=== PATIENT | female | born 1980 | race Two or more races ===

== ENCOUNTER 2024-12-26 21:18 | Emergency (ER) | payer MEDICAID, SELFPAY ==
[2024-12-26 21:19] VITALS: BMI 31.8
[2024-12-26 21:54] VITALS: BP 131/57; PULSE 75; RESP 18; TEMP 36.9; O2SAT 99
--- NOTE | 2024-12-26 22:13 | XR_ITS ---
Examination: CT brain head without contrast. 2-D sagittal coronal reconstructions Date and time of exam:December 26, 2024 10:40 PM INDICATIONS: Headaches today CTDI: vol (mGy):48.8 DLP: (mGycm):948 Technique: Multiple CT axial sections of the brain have been obtained, 5 mm slice thickness. Contrast has not been administered. 2-D sagittal, coronal reconstructions have been obtained Low dose protocols were performed. One or more of the following dose reduction techniques were used; automated exposure control, adjustment of the mA and/or KV according to patient size, use of iterative reconstruction technique. Findings: No significant ventricular enlargement. Intra-axial or extra-axial hemorrhage density is not seen. No mass effect or midline shift Basal cisterns are not remarkable. Fourth ventricle is midline. Cranial vault intact. 10 mm retention cyst right maxillary antrum Impression: Negative for acute hemorrhage, mass effect or midline shift
--- NOTE | 2024-12-26 23:31 | PD.EDHA ---
ED Headache RME/HPI General Chief Complaint: Headache Stated Complaint: HEADACHE X1 WEEK Time Seen by Provider: 12/26/24 21:23 Arrival date/time: 12/26/24 21:18 This is a case of a 44-year-old female who was brought by the daughter due to headache mostly on the left frontal parietal area daughter states that the patient have history of migraine headache but not taking any medication patient symptoms started 1 week prior to arrival in the emergency room with nausea no vomiting no blurring of vision no history of injury or trauma patient denies any numbness weakness or tingling sensation denies any dizziness Limitations: no limitations Related Data Home Medications ?Medication ?Instructions ?Recorded ?Confirmed vits no.124-ferrous fum 1 tab PO QDAY 04/04/19 04/12/19 27 mg iron-folic acid 800 mcg tablet ( Vitamin) Previous Rx's ?Medication ?Instructions ?Recorded [id number]-rrwztwrzonwgy-eyheafjs 250 1 tab PO Q6H PRN headache #20 tabs 12/26/24 mg-250 mg-65 mg tablet (Excedrin Migraine) ondansetron 4 mg disintegrating 4 mg PO Q8H PRN nausea and 12/26/24 tablet vomiting #20 tabs Allergies Allergy/AdvReac Type Severity Reaction Status Date / Time No Known Allergies Allergy Unverified 04/14/19 11:30 Review of Systems Review of Systems Systems Reviewed: All systems reviewed, normal except as documented Constitutional Constitutional: Reports system reviewed and no additional complaints, except as documented, Denies frequent falls and Reports headache(s) Eyes Eyes: Reports system reviewed and no additional complaints, except as documented, Reports as per HPI and Denies loss of vision ENT Ears, Nose, Mouth, and Throat: Reports system reviewed and no additional complaints, except as documented, Reports as per HPI, Denies abnormal hearing, Denies disequilibrium, Denies dizziness and Reports headache(s) Cardiovascular Cardiovascular: Reports system reviewed and no additional complaints, except as documented Respiratory Respiratory: Reports system reviewed and no additional complaints, except as documented Gastrointestinal Gastrointestinal: Reports system reviewed and no additional complaints, except as documented Musculoskeletal Musculoskeletal: Reports system reviewed and no additional complaints, except as documented, Denies abnormal gait and Denies numbness Neurologic Neurologic: Reports system reviewed and no additional complaints, except as documented, Reports as per HPI, Denies abnormal gait, Denies abnormal hearing, Denies abnormal movements, Denies abnormal speech, Denies behavioral changes, Denies burning sensations, Denies confusion, Denies convulsions, Denies disequilibrium, Denies dizziness, Denies localized weakness, Denies frequent falls, Reports headache(s), Denies lack of coordination, Denies loss of vision, Denies memory loss and Denies numbness Psychiatric Psychiatric: Denies behavioral changes, Denies confusion and Denies memory loss Past Medical History Past Medical History NEUROLOGIC: Negative Neurological Disorders or Seizures CARDIAC: Negative Cardiac Disorders or Congestive Heart Failure RESPIRATORY: Negative Chronic Obstructive Pulmonary Disease (COPD) GASTROINTESTINAL: Negative Gastrointestinal Disorders, Hepatitis or Colorectal Cancer GENITOURINARY: Negative Genitourinary Disorders, Renal Disease or Prostate Cancer REPRODUCTIVE: Negative Breast Cancer or Testicular Cancer MUSCULOSKELETAL: Negative Musculoskeletal Disorders or Bone Cancer ENDOCRINE: Negative Endocrine Disorders, Diabetes Mellitus Type 1 or Diabetes Mellitus Type 2 HEMATOLOGIC: Negative Blood Disorders OTHER HISTORY: Positive Chicken Pox; Negative Autoimmune Disease, Developmental Delay, Blood Transfusions, Blood Transfusion Reaction, Anesthesia Reactions, MRSA, VRSA, Vancomycin-Resistant Enterococci, Human Immunodeficiency Virus (HIV), Measles, Mumps, Rubella ([place] Measles), Pertussis, Clostridium Difficile, Cancer, Breast Cancer, Cervical Cancer, Colorectal Cancer, Lung Cancer, Ovarian Cancer, Prostate Cancer or Testicular Cancer Family History FAMILY HISTORY: Positive Family Cardiac Disorders (MOTHER AND FATHER HIGH BLOOD PRESSURE); Negative Family Psychiatric Problems, Family Respiratory Disorders, Family Gastrointestinal Problems, Family Cancer, Family Surgery or Family Anesthesia Reaction Surgical History SURGICAL: Negative Section Social History SMOKING STATUS: Never smoker ED Exam General Limitations: Present no limitations General appearance: Present alert and in no apparent distress Head Head exam: Present atraumatic, normocephalic and normal inspection Eye Eye exam: Present normal appearance, PERRL, EOMI and other (no pappiledema) ENT ENT exam: Present normal exam, normal oropharynx, mucous membranes moist, mucous membranes dry, TM's normal bilaterally and normal external ear exam Neck Neck exam: Present normal inspection, full ROM and trachea midline; Absent meningismus Chest Chest inspection: Present normal inspection and symmetric chest wall rise Respiratory Respiratory exam: Present normal lung sounds bilaterally; Absent respiratory distress Cardiovascular Cardiovascular exam: Present regular rate, normal rhythm and normal heart sounds Abdominal Exam Abdominal exam: Present soft and normal bowel sounds Extremities Exam Extremities exam: Present normal inspection, full ROM and normal capillary refill; Absent tenderness Back Exam Back exam: Present normal inspection and full ROM Neurological Exam Neurological exam: Present alert, oriented X3, CN II-XII intact, normal gait, motor sensory deficit and reflexes normal Expanded Neurological Exam Cranial nerves: Normal: EOM function (II, III, IV, ), facial sensation (V), facial palsy (VII), gag reflex (IX), spinal accessory function (XI) and tongue deviation (XII) Cerebellar function: Normal: finger to nose and heel to fierro Cerebellar function: Present normal gait Motor strength - LUE: 5/5 Motor strength - RUE: 5/5 Motor strength - LLE: 5/5 Motor strength - RLE: 5/5 Upper motor neuron exam: Normal: mehrdad neglect, pronator drift, Babinski sign and sensory extinction DTR: 2+: biceps (L), biceps (R), brachioradialis (L), brachioradialis (R), triceps (L), triceps (R), patellar (L), patellar (R), Achilles tendon (L) and Achilles tendon (R) Psychiatric Psychiatric exam: Present normal affect and normal mood Skin Skin exam: Present warm, dry, intact and normal color Course Quality Measures none Orders Category Date Time Status CT head/brain wo con Stat Exams 12/26/24 22:13 Completed HYDROcodone*/APAP 5/325 [[place] 5/325] Med 12/26/24 23:25 Discontinued 1 tab PO X1 ONE Ketorolac Inj [Toradol Inj] Med 12/26/24 23:25 Discontinued 60 mg IM X1 ONE Ondansetron Odt [Zofran Odt] Med 12/26/24 23:25 Discontinued 4 mg PO X1 ONE Vital Signs Vital signs: Vital Signs Temperature 98.5 F 12/26/24 21:54 Pulse Rate 75 12/26/24 21:54 Respiratory Rate 18 12/26/24 21:54 Blood Pressure 131/57 H 12/26/24 21:54 Pulse Oximetry (%) 99 12/26/24 21:54 Oxygen Delivery Method Room Air 12/26/24 21:54 Oxygen saturation 99% in room air WNL Headache MDM Narrative MDM Narrative:: This is a case of a 44-year-old female who was brought by the daughter due to headache mostly on the left frontal parietal area daughter states that the patient have history of migraine headache but not taking any medication patient symptoms started 1 week prior to arrival in the emergency room with nausea no vomiting no blurring of vision no history of injury or trauma patient denies any numbness weakness or tingling sensation denies any dizziness physical examination patient is awake alert oriented not in distress nontoxic looking patient vital signs stable BP stable not tachycardic not tachypneic or febrile not toxic looking not in distress with good skin turgor no signs and symptoms of dehydration no signs and symptoms of meningitis no signs and symptoms of sepsis consideration tension headache migraine headache sinus headache I do not think patient is having CVA nor TIA or brain mass patient neurological exam is normal no focal deficit steady gait negative Babinski negative Romberg motor or sensory reflex were intact CT scan showed normal no intracranial bleeding no brain mass after giving Toradol [place] and Zofran patient condition markedly improved patient pain improved patient was advised to follow-up with PCP to be referred to neurologist for further evaluation and treatment of headache and for further evaluation and treatment of migraine headache for any recurrence worsening symptoms or any emergent concerns she will return in the emergency room immediately or call 911 she will be prescribed with Excedrin for headache and Zofran for vomiting patient agreed with the treatment plan and discharge patient understood the discharge instruction patient will be discharged with stable condition and steady gait Patient data External records reviewed:: [facility] previous records Clinical information provided by:: patient and family Social determinants that could affect healthcare access:: none Patient has the following chronic illnesses:: No chronic illness How is presenting disease/condition affected by chronic disease/condition?: no chronic disease Evaluation data The following diagnostics were reviewed and interpreted by me:: radiology exam(s) Lab and/or radiology exams considered but not ordered:: Reviewed Interpretation Summary: Normal Medications / Prescriptions Medications or Prescriptions considered but not ordered:: Given Medication administrations:: Medication Administration History Discontinued Medications Hydrocodone Bitart/Acetaminophen (Hydrocodone/Apap 5/325 Tablet) 1 tab PO X1 ONE Stop: 12/26/24 23:26 Ketorolac Tromethamine (Ketorolac Inj 60 Mg/2 Ml Vial) 60 mg IM X1 ONE Stop: 12/26/24 23:26 Ondansetron HCl (Ondansetron Odt 4 Mg Tabrap) 4 mg PO X1 ONE; Protocol Stop: 12/26/24 23:26 Given Consultations Consultation(s) initiated? (list below): No Diagnosis Differential diagnosis headache: migraine, tension headache and headache Most likely diagnosis given after review of the tests above:: Migraine headache Admission Indicated Admission indicated?: not indicated Admission Request Was there a request for admission?: No Disposition Plan Disposition Plan: Discharge Discharge Attestation Discharge Attestation: The patient and all family members were given an opportunity to ask questions and understood the discharge instructions. Discharge instructions specifically effects, indications for sooner follow up or return to the emergency department, and the expected course of current diagnosis. Patient condition: Stable Discharge Plan Plan Patient Disposition: HOME (Self Care) Discharge Disposition comment: Stable Prescriptions/Referrals Prescriptions/Med Rec: New Excedrin Migraine 250-250-65 mg tablet 1 tab PO Q6H PRN (Reason: headache) Qty: 20 0RF ondansetron 4 mg tablet,disintegrating 4 mg PO Q8H PRN (Reason: nausea and vomiting) Qty: 20 0RF No Action Vitamin 27 mg iron- 800 mcg Tablet 1 tab PO QDAY Referrals: No Primary/Family,Physician [Primary Care Provider] - In 1 week Problem List Clinical Impression: Headache Patient/Caregiver Discharge Instructions Other Activity Instructions:: Follow-up with your primary care physician in 2 days for reevaluation and to be referred to neurologist for your headache and migraine headache for any recurrence worsening symptoms or any emergent concern call 911 or go to the nearest emergency room increase water intake Education Materials: Self-Care for Headaches Print Language: [place] Stand Alone Forms: Vernell Award Info., Patient Portal Info Letter PA/THORACIC MEDICINE PHYSICIAN Supervising Physician PA/THORACIC MEDICINE PHYSICIAN Supervising Physician: Mario
[2024-12-27] MEDS: KETOROLAC INJ 60 MG/2 ML VIAL IM (00:10)
[2024-12-27] MEDS: ONDANSETRON ODT 4 MG TABRAP PO (00:10)
[2024-12-27] MEDS: HYDROcodone/APAP 5/325 TABLET 1 TAB PO (00:10)
== END 2024-12-26 23:40 | disposition home or self-care (01) ==
PROVIDERS: Emergency Provider Emergency Medicine
DX: R51.9 Headache, unspecified (principal)
CPT/HCPCS: 70450; 96372; 99284; J1885; Q0162; A9270

== ENCOUNTER 2025-01-23 16:10 | Emergency (ER) | payer MEDICAID, SELFPAY ==
[2025-01-23 16:34] VITALS: BP 143/76; PULSE 85; RESP 18; TEMP 36.8; O2SAT 98; BMI 29.5
--- NOTE | 2025-01-23 16:47 | PD.EDRME ---
Rapid Medical Screening Exam RME Arrival date/time: 01/23/25 16:10 44-year-old female with no known medical history was sent over by her primary care provider for hemoglobin of 6. Patient states that she is weak fatigued and is having a heavy menses. I have greeted and performed a focused initial assessment of this patient. A comprehensive ED assessment and evaluation of the patient, analysis of all test results, and completion of the medical decision making process will be conducted by additional ED providers. Chief Complaint: Recheck/Abnormal Lab/Rx Vital signs: Vital Signs Temperature 98.2 F 01/23/25 16:34 Pulse Rate 85 01/23/25 16:34 Respiratory Rate 18 01/23/25 16:34 Blood Pressure 143/76 H 01/23/25 16:34 Pulse Oximetry (%) 98 01/23/25 16:34 Oxygen Delivery Method Room Air 01/23/25 16:34 Vital signs reviewed by provider: Yes
[2025-01-23 17:10] LABS: Basophils # (Auto) 0.1 Thou/mm3 (0.0-0.2); Basophils % (Auto) 1 % (0-2.5); Eosinophils # (Auto) 0.2 Thou/mm3 (0.0-0.5); Eosinophils % (Auto) 4 % (0-10); Hematocrit 21.8 % (36.0-46.0); Immature Granulocytes % (Auto) 0 % (0-0); Immature Granulocytes Auto 0.01 Thou/mm3 (0.00-0.00); Lymphocytes # (Auto) 1.9 Thou/mm3 (1.0-4.8); Lymphocytes % (Auto) 37 % (10-50); Mean Corpuscular HGB Conc 29.8 g/dl (31.0-37.0); Mean Corpuscular Hemoglobin 19.2 pg (25.0-35.0); Mean Corpuscular Volume 65 fL (80-100); Monocytes # (Auto) 0.4 Thou/mm3 (0.0-0.8); Monocytes % (Auto) 8 % (0-12); Neutrophils # (Auto) 2.6 Thou/mm3 (1.8-7.7); Neutrophils % (Auto) 50 % (37-80); Nucleated Red Blood Cell % 0 /100 WBC (0); Platelet Count 356 Thou/mm3 (140-440); RDW Standard Deviation 48.2 fL (36.4-46.3); Red Blood Count 3.38 Miln/mm3 (4.00-5.20); White Blood Count 5.2 Thou/mm3 (3.6-11.0)
[2025-01-23 17:22] LABS: Hemoglobin 6.5 g/dL (12.0-16.0)
[2025-01-23 17:26] LABS: Ferritin 7 ng/mL (7.3-270.7)
[2025-01-23 17:34] LABS: Alanine Aminotransferase 8 U/L (10-49); Albumin, Serum 3.9 gm/dL (3.5-5.0); Albumin/Globulin Ratio 1.4 (1.2-2.2); Alkaline Phosphatase 63 U/L (46-116); Anion Gap 10 (7-16); BUN/Creatinine Ratio 22 Ratio (12-20); Bilirubin,Total 0.4 mg/dL (0.3-1.2); Blood Urea Nitrogen 13 mg/dL (9-23); Calcium 8.2 mg/dL (8.3-10.6); Calcium (Corrected) 8.3 mg/dL (8.5-10.1); Carbon Dioxide 23.5 mMol/L (20.0-31.0); Chloride 112 mMol/L (98-107); Creatinine (Component) 0.6 mg/dL (0.6-1.3); Estimated Creatinine Clearance 118.4 mL/min (>60); Globulin 2.8 gm/dL (2.3-3.5); Glucose 99 mg/dL (74-106); Osmolality,Calculated 288 (275-295); Sodium 145 mMol/L (136-145); Total Protein 6.7 gm/dL (5.7-8.2); eGFR > 60 See Note
[2025-01-23 18:18] LABS: Path Review Blood Smear Sent to Pathologist
[2025-01-23 18:29] LABS: Partial Thromboplastin Time 23.4 Seconds (22.0-36.0); Prothrombin Time 10.9 Seconds (9.0-12.2)
[2025-01-23 19:46] VITALS: BP 115/67; PULSE 85; RESP 20; TEMP 36.9; O2SAT 100
[2025-01-23 21:53] VITALS: BP 120/69; PULSE 85; RESP 18; TEMP 37.1; O2SAT 97
--- NOTE | 2025-01-23 23:24 | EKG_ITS ---
[facility] Test Date: 2025-01-23 Pat Name: ADRIÁN Gonzalezpartment: Room: - Gender: Female [employer]: : 1980 Requested By: Cass Mejia Order Number: [id number] Reading MD: Cass Mejia Measurements Intervals [place] Rate: 63 P: 36 NM: 148 QRS: 12 QRSD: 101 T: 48 QT: 441 QTc: 454 Interpretive Statements SINUS RHYTHM No previous ECG available for comparison /store/S0/[id number]/ecg/[id number].pdf
--- NOTE | 2025-01-23 23:27 | PD.EDRECHK ---
ED Recheck Abnl Lab Rx-RME/HPI General Chief Complaint: Recheck/Abnormal Lab/Rx Stated Complaint: SENT FOR BLOOD TRANSFUSION Time Seen by Provider: 01/23/25 18:26 Arrival date/time: 01/23/25 16:10 44-year-old female with no past medical history presents to the ED with a complaint of fatigue, weakness and heavy menstrual bleeding. She has been having heavy menses for a while. She was seen by her primary care physician for complaint of a headache. The PCP ordered labs and discovered a very low hemoglobin. She was sent here for further workup and evaluation as well as blood transfusion. She denies any nausea or vomiting, diarrhea or abdominal pain. Limitations: language barrier RME / HPI RME / HPI narrative: 01/23/25 16:10 44-year-old female with no known medical history was sent over by her primary care provider for hemoglobin of 6. Patient states that she is weak fatigued and is having a heavy menses. I have greeted and performed a focused initial assessment of this patient. A comprehensive ED assessment and evaluation of the patient, analysis of all test results, and completion of the medical decision making process will be conducted by additional ED providers. Related Data Home Medications ?Medication ?Instructions ?Recorded ?Confirmed vits no.124-ferrous fum 1 tab PO QDAY 04/04/19 04/12/19 27 mg iron-folic acid 800 mcg tablet ( Vitamin) Previous Rx's ?Medication ?Instructions ?Recorded lctyxqt-sntswagdksqjl-kxxopxxk 250 1 tab PO Q6H PRN headache #20 tabs 12/26/24 mg-250 mg-65 mg tablet (Excedrin Migraine) ondansetron 4 mg disintegrating 4 mg PO Q8H PRN nausea and 12/26/24 tablet vomiting #20 tabs ferrous sulfate 325 mg (65 mg 325 mg PO BID #60 tabs 01/24/25 iron) tablet Allergies Allergy/AdvReac Type Severity Reaction Status Date / Time No Known Allergies Allergy Unverified 01/23/25 16:12 Review of Systems Review of Systems Systems Reviewed: All systems reviewed, normal except as documented Past Medical History Past Medical History NEUROLOGIC: Negative Neurological Disorders or Seizures CARDIAC: Negative Cardiac Disorders or Congestive Heart Failure RESPIRATORY: Negative Chronic Obstructive Pulmonary Disease (COPD) GASTROINTESTINAL: Negative Gastrointestinal Disorders, Hepatitis or Colorectal Cancer GENITOURINARY: Negative Genitourinary Disorders, Renal Disease or Prostate Cancer REPRODUCTIVE: Negative Breast Cancer or Testicular Cancer MUSCULOSKELETAL: Negative Musculoskeletal Disorders or Bone Cancer ENDOCRINE: Negative Endocrine Disorders, Diabetes Mellitus Type 1 or Diabetes Mellitus Type 2 HEMATOLOGIC: Negative Blood Disorders OTHER HISTORY: Positive Chicken Pox; Negative Autoimmune Disease, Developmental Delay, Blood Transfusions, Blood Transfusion Reaction, Anesthesia Reactions, MRSA, VRSA, Vancomycin-Resistant Enterococci, Human Immunodeficiency Virus (HIV), Measles, Mumps, Rubella (Mauritanian Measles), Pertussis, Clostridium Difficile, Cancer, Breast Cancer, Cervical Cancer, Colorectal Cancer, Lung Cancer, Ovarian Cancer, Prostate Cancer or Testicular Cancer Family History FAMILY HISTORY: Positive Family Cardiac Disorders; Negative Family Psychiatric Problems, Family Respiratory Disorders, Family Gastrointestinal Problems, Family Cancer, Family Surgery or Family Anesthesia Reaction Surgical History SURGICAL: Negative Section Social History SMOKING STATUS: Never smoker ED Exam Narrative Physical exam: Alert and oriented 44-year-old female, appears fatigued. Lungs are clear, regular rate and rhythm without murmurs, abdomen is soft and nontender. Pale conjunctiva noted. Moves all extremities well. General Limitations: Present language barrier General appearance: Present alert and in no apparent distress Course Course Course Narrative: 44-year-old female with no past medical history presents to the ED with a complaint of fatigue, weakness and heavy menstrual bleeding. She has been having heavy menses for a while. She was seen by her primary care physician for complaint of a headache. The PCP ordered labs and discovered a very low hemoglobin. She was sent here for further workup and evaluation as well as blood transfusion. She denies any nausea or vomiting, diarrhea or abdominal pain. Alert and oriented 44-year-old female, appears fatigued. Lungs are clear, regular rate and rhythm without murmurs, abdomen is soft and nontender. Pale conjunctiva noted. Moves all extremities well. Vital signs blood pressure 143/76, pulse 85, respirations 18 nonlabored, temp 98.2, O2 sat 98% on room air. Labs reveal a normal white count with significantly low H&H of 6.5/21.8 with normal platelets. Coags are normal. Chemistry panel reveals a minimally elevated chloride of 112, normal renal function, low ferritin of 7 with normal LFTs. Blood bank tests reveal low positive blood with negative antibody screen. 2 units of PRBCs ordered as are currently transfusing. Care of patient transferred to Dr. Banks at 0235 pending completion of transfusion and repeat CBC. 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 STAT Care 01/23/25 23:24 Active EKG (ED ONLY) *Do not use* NOW Care 01/23/25 23:24 Completed Insert IV STAT Care 01/23/25 23:24 Active NPO NOW Care 01/23/25 23:24 Active Transfuse,blood/blood products ONCE Care 01/23/25 23:24 Active EKG (ED Only) Stat Exams 01/23/25 23:24 Draft CBC Auto Diff Post-Transfusion Routine Lab 01/23/25 23:24 Ordered CBC Stat Lab 01/23/25 16:58 Completed CMP [Comprehensive Metabolic Panel] Stat Lab 01/23/25 16:58 Completed Ferritin Stat Lab 01/23/25 16:58 Completed PT [Prothrombin Time with INR] Stat Lab 01/23/25 16:58 Completed PTT [Partial Thromboplastin Time] Stat Lab 01/23/25 16:58 Completed Path Review Blood Smear Stat Lab 01/23/25 16:58 Completed Type and Screen Stat Lab 01/23/25 16:58 Results prbc [Red Blood Cells] Stat Lab 01/23/25 16:58 Results Acetaminophen Tab [Tylenol Tab] Med 01/23/25 23:24 Discontinued 650 mg PO X1 ONE DiphenhydrAMINE [Benadryl] Med 01/23/25 23:24 Discontinued 25 mg PO X1 ONE Furosemide [Lasix Inj] Med 01/23/25 23:24 Discontinued 40 mg IVP X1 ONE Vital Signs Vital signs: Vital Signs Temperature 98.2 F 01/23/25 16:34 Pulse Rate 85 01/23/25 16:34 Respiratory Rate 18 01/23/25 16:34 Blood Pressure 143/76 H 01/23/25 16:34 Pulse Oximetry (%) 98 01/23/25 16:34 Oxygen Delivery Method Room Air 01/23/25 16:34 Recheck / Abnormal Lab / Rx MDM Narrative MDM Narrative:: 44-year-old female with no past medical history presents to the ED with a complaint of fatigue, weakness and heavy menstrual bleeding. She has been having heavy menses for a while. She was seen by her primary care physician for complaint of a headache. The PCP ordered labs and discovered a very low hemoglobin. She was sent here for further workup and evaluation as well as blood transfusion. She denies any nausea or vomiting, diarrhea or abdominal pain. Alert and oriented 44-year-old female, appears fatigued. Lungs are clear, regular rate and rhythm without murmurs, abdomen is soft and nontender. Pale conjunctiva noted. Moves all extremities well. Vital signs blood pressure 143/76, pulse 85, respirations 18 nonlabored, temp 98.2, O2 sat 98% on room air. Labs reveal a normal white count with significantly low H&H of 6.5/21.8 with normal platelets. Coags are normal. Chemistry panel reveals a minimally elevated chloride of 112, normal renal function, low ferritin of 7 with normal LFTs. Blood bank tests reveal O positive blood with negative antibody screen. 2 units of PRBCs ordered as are currently transfusing. Care of patient transferred to Dr. Banks at 0235 pending completion of transfusion and repeat CBC. Patient data External records reviewed:: None Clinical information provided by:: patient Social determinants that could affect healthcare access:: none Patient has the following chronic illnesses:: None How is presenting disease/condition affected by chronic disease/condition?: no chronic disease Evaluation data The following diagnostics were reviewed and interpreted by me:: lab results Lab and/or radiology exams considered but not ordered:: N/A Interpretation Summary: Labs reveal a normal white count with significantly low H&H of 6.5/21.8 with normal platelets. Coags are normal. Chemistry panel reveals a minimally elevated chloride of 112, normal renal function, low ferritin of 7 with normal LFTs. Blood bank tests reveal O positive blood with negative antibody screen. Medications / Prescriptions Medications or Prescriptions considered but not ordered:: N/A Medication administrations:: Medication Administration History Discontinued Medications Acetaminophen (Acetaminophen 325 Mg Tablet) 650 mg PO X1 ONE Stop: 01/23/25 23:25 Diphenhydramine HCl (Diphenhydramine 25 Mg Capsule) 25 mg PO X1 ONE Stop: 01/23/25 23:25 Furosemide (Furosemide Inj 10 Mg/Ml Vial 2 Ml) 40 mg IVP X1 ONE Stop: 01/23/25 23:25 Last Admin: 01/24/25 02:09 Dose: Not Given Documented By: AM Non-Admin Reason: Patient Refused Tylenol 650 mg p.o., diphenhydramine 25 mg p.o. Consultations Consultation(s) initiated? (list below): No Diagnosis Recheck Differential Diagnosis: other (Acute blood loss anemia, iron deficiency anemia) Most likely diagnosis given after review of the tests above:: Acute blood loss anemia secondary to menorrhagia Admission Indicated Admission indicated?: not indicated Explain why admission is indicated or not indicated:: Patient is stable for discharge Admission Request Was there a request for admission?: No Disposition Plan Disposition Plan: Discharge Discharge Attestation Discharge Attestation: The patient and all family members were given an opportunity to ask questions and understood the discharge instructions. Discharge instructions specifically effects, indications for sooner follow up or return to the emergency department, and the expected course of current diagnosis. Patient condition: Stable Discharge Plan Plan Patient Disposition: HOME (Self Care) Discharge Disposition comment: Stable and improved Prescriptions/Referrals Prescriptions/Med Rec: New ferrous sulfate 325 mg (65 mg iron) tablet 325 mg PO BID Qty: 60 0RF No Action Vitamin 27 mg iron- 800 mcg Tablet 1 tab PO QDAY Excedrin Migraine 250-250-65 mg tablet 1 tab PO Q6H PRN (Reason: headache) Qty: 20 0RF ondansetron 4 mg tablet,disintegrating 4 mg PO Q8H PRN (Reason: nausea and vomiting) Qty: 20 0RF Referrals: No Primary/Family,Physician [Primary Care Provider] - In 1 week Problem List Clinical Impression: Anemia, Menorrhagia Patient/Caregiver Discharge Instructions Education Materials: ED Anemia Type Not Specified, ED Dysfunctional Uterine Bleeding Additional Instructions: Follow-up with your primary care physician in 24 to 48 hours. Return to the ED for any new or worsening symptoms. Print Language: Telugu Stand Alone Forms: [employer] Info., Patient Portal Info Letter SOCORRO/FATOUMATA Supervising Physician SOCORRO/FATOUMATA Supervising Physician: Dr Banks
[2025-01-24] VITALS (12 sets, daily range): BP systolic 114–137; BP diastolic 60–86; PULSE 59–70; RESP 14–20; TEMP 36.6–36.9; O2SAT 97–100
[2025-01-24] MEDS: ACETAMINOPHEN 325 MG TABLET 650 MG PO (04:20)
--- NOTE | 2025-01-24 04:59 | EDNOTE_ITS ---
Emergency Room Addendum Addendum Narrative: I took over the care from previous shift provider (Cass Cooley NP) at _3 AM_ on _01/24/2025_.? See previous notes for complete H & P and ED course.?? I reviewed all diagnostic test results: Remarkable for Hgb 6.5. Treatment here included?blood transfusion. Recommended more outpatient care. Based on my best medical judgment, made decision no further evaluation or treatment indicated at this time.? Patient understands and agrees to the discharge instructions customized and printed, see below. Discharge Instructions from Dr. Banks printed for you: 1. You are given blood transfusion for severely low red blood cell count. 2. Your body needs iron to make red blood cells which take 3 months. Take iron pills as prescribed. Increase food rich in iron, including red meat and egg yolks and seaweed. 3. See a private doctor on 01/26/2025 for recheck and further care. Ask to review all test results and official radiology reports, to make sure you receive all necessary follow-ups and monitoring. Ask for a referral to see self propelled hot mix roller operator who can help you find the cause and treatment of your blood loss. 4. Seek immediate medical care with worsening or with any concerns. Jose Juan Banks MD
== END 2025-01-24 07:45 | disposition home or self-care (01) ==
PROVIDERS: Nurse Practitioner Family; Emergency Provider Emergency Medicine
DX: D64.9 Anemia, unspecified (principal); N92.0 Excessive and frequent menstruation with regular cycle
CPT/HCPCS: 36415; 36430; 80053; 82728; 85025; 85610; 85730; 86850; 86900; 86901; 86923; 93005; 99285; P9016; A9270

== ENCOUNTER → 2025-03-20 | Outpatient (CLI) | payer MEDICAID, SELFPAY ==
--- NOTE | 2025-03-20 11:45 | XR_ITS ---
Examination: Screening digital mammography, bilateral Computer aided detection 3-D breast Tomosynthesis, bilateral Date and time of exam: March 20, 2025 1131 hours no priors Indication: Screening Technique: Nonmagnified MLO, CC views of the breasts to been obtained, reconstructed from 3-D Tomosynthesis images. R2 computer aided detection program utilized for evaluation of suspicious masses and/or abnormal calcifications. 3-D Tomosynthesis images obtained. Findings: The breasts are heterogeneously dense, which may obscure small masses 19 mm circumscribed mass retroareolar region right breast which may represent a cyst Impression: BI-RADS Category 0: Incomplete: Need additional imaging evaluation Recommend follow-up spot tomographic views of the retroareolar mass right breast as well as bilateral breast sonography to complete the workup
== END | disposition home or self-care (01) ==
PROVIDERS: PCP Physician Assistant; Referring Provider Physician Assistant; Visit Provider Physician Assistant
DX: Z12.31 Encounter for screening mammogram for malignant neoplasm of breast (principal); N63.41 Unspecified lump in right breast, subareolar
CPT/HCPCS: 77063; 77067

== ENCOUNTER → 2025-04-28 | Outpatient (CLI) | payer MEDICAID, SELFPAY ==
--- NOTE | 2025-04-28 14:30 | XR_ITS ---
Examination: CT abdomen and pelvis without contrast. Coronal 3-D reconstructions. Sagittal 2-D reconstructions. Date and time of exam:April 28, 2025 1519 hours INDICATIONS: Abdominal palpable mass and pain for years CTDI: vol (mGy): 9.09 DLP: (mGycm): 515 Technique: Axial images of the abdomen have been obtained, 3 mm slice thickness Intravenous contrast material has not been administered. Low dose protocols were performed. One or more of the following dose reduction techniques were used; automated exposure control, adjustment of the mA and/or KV according to patient size, use of iterative reconstruction technique. Findings: No focal liver lesions or biliary tract dilatation No gallstones Spleen not enlarged No pancreatic mass or peripancreatic edema Normal adrenal glands. No renal or ureteral calculi, no hydronephrosis Aorta normal size Normal appendix Very large pelvic mass, 22.4 x 12.0 x 19 cm which may be part of the uterus, ovarian tumor not excluded Contracted urinary bladder Osseous structures intact IMPRESSION: 22 x 12 x 19 cm pelvic mass as above, recommend pelvic sonography follow-up
[2025-04-28 15:07] LABS: HCG Qualitative,Urine Negative
== END | disposition home or self-care (01) ==
LOC: CCTX 14:11
PROVIDERS: PCP Physician Assistant; Referring Provider Physician Assistant; Visit Provider Physician Assistant
DX: R19.00 Intra-abdominal and pelvic swelling, mass and lump, unspecified site (principal)
CPT/HCPCS: 74176; 81025

== ENCOUNTER → 2025-05-29 | Outpatient (CLI) | payer MEDICAID, SELFPAY ==
--- NOTE | 2025-05-29 08:45 | XR_ITS ---
Examination: Breast ultrasound complete, bilateral Date and time of exam: May 29, 2025, 0919 hours INDICATIONS: Mammogram March 20, 2000 2519 mm circumscribed mass retroareolar region right breast right breast pain months Technique: Real-time grayscale ultrasonographic imaging bilateral breasts, including all 4 quadrants as well as nipple retroareolar and axillary regions. Findings: Sonographic images right breast Solid nodule right breast with lobular margins 3.2 x 1.5 x 2.4 cm Sonographic images left breast No cystic or solid mass IMPRESSION: BI-RADS Category 4: Suspicious mass retroareolar region right breast, biopsy is needed to exclude breast carcinoma, this mass is amenable to ultrasound-guided breast biopsy for diagnosis
--- NOTE | 2025-05-29 09:45 | XR_ITS ---
Examination: Diagnostic digital mammography, unilateral, right Computer aided detection 3-D breast Tomosynthesis, unilateral Date and time of exam: May 29, 2025, 0940 hours INDICATIONS: Mammogram March 20, 2025 19 mm circumscribed retroareolar nodule right breast Technique: Nonmagnified MLO, CC views of the left breast have been obtained, reconstructed from 3-D Tomosynthesis images. R2 computer aided detection program utilized for evaluation of suspicious masses and/or abnormal calcifications. 3-D Tomosynthesis images obtained. Findings: Scattered areas of fibroglandular density Retroareolar nodule right breast with multiple lobular margins, 3.2 x 1.5 x 2.4 cm Impression: BI-RADS category 4: Suspicious for malignancy Suspicious mass retroareolar region right breast, biopsy is needed to exclude breast carcinoma, this mass is amenable to ultrasound-guided breast biopsy for diagnosis
== END | disposition home or self-care (01) ==
LOC: CDIM 08:59
PROVIDERS: PCP Physician Assistant; Referring Provider Physician Assistant; Visit Provider Physician Assistant
DX: R92.341 Mammographic extreme density, right breast (principal); N63.41 Unspecified lump in right breast, subareolar
CPT/HCPCS: 76641; 77061; 77065; G0279

== ENCOUNTER 2025-06-16 11:05 | Outpatient (AMB) | payer MEDICAID, SELFPAY ==
[2025-06-16 11:27] VITALS: BP 136/83; PULSE 77; RESP 14; TEMP 36.2; O2SAT 98; BMI 35.6
--- NOTE | 2025-06-16 11:27 | GYNCLNT_ITS ---
Vital Signs 06/16/25 11:27 Height 1.55 m Height Method Stated Weight 85.445 kg Weight Measurement Method Standing Scale BMI 35.6 BP 136/83 H Blood Pressure Source Automatic Cuff Blood Pressure Location Left Upper Arm Position Sitting Respiration 14 Pulse 77 Pulse Source Monitor Temp 97.1 F Temp Source Oral Pulse Oximetry (%) 98 Oxygen Delivery Method Room Air Allergies/Home Meds Allergies & Medications Allergies No Known Allergies Allergy (Verified 06/16/25 11:28) Medication Reconciliation vits no.124-ferrous fum 27 mg iron-folic acid 800 mcg tablet ( Vitamin) 1 tab PO QDAY 04/04/19 [History Confirmed 06/16/25] kbefqvd-sbtwulaxmowbo-gscniyzc 250 mg-250 mg-65 mg tablet (Excedrin Migraine) 1 tab PO Q6H PRN headache #20 tabs 12/26/24 [Rx Confirmed 06/16/25] ondansetron 4 mg disintegrating tablet 4 mg PO Q8H PRN nausea and vomiting #20 tabs 12/26/24 [Rx Confirmed 06/16/25] ferrous sulfate 325 mg (65 mg iron) tablet 325 mg PO BID #60 tabs 01/24/25 [Rx Confirmed 06/16/25] Intake Visit Data Collection New Patient or Established: Established Patient (seen at [facility] within 3 years) Reason for Visit:: PELVIC MASS Seen by Clinical Staff ONLY (RN/MA): No Rn Surgical Required: Yes Rn Surgical's name/title: JOSE EVANS Do You Feel Safe at Home: Yes Authorities Contacted: N/A PCP or OBGYN visit in last 3 months: Yes Hx Now: No Are you currently on any form of Control: Yes Last menstrual period: 04/13/25 Pain Present Currently: No Pain Scale Used: Recinos-Khanna/Numerical Pain scale:: 0 Smoking Status Smoking Status: Never smoker Immunizations Flu Vaccine in the Last 12 Months: Yes Flu Vaccine Exclusion Criteria: Already Received Operating Systems Specialist history Operating Systems Specialist History Menstrual regularity: regular Flow: heavy Monthly: Yes How many days does period last: 7 Age at menarche: 13 Currently sexually active: No If not currently sexually active, have you ever been sexually active: Yes 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 1. Little interest or pleasure in doing things: not at all 2. Feeling down, depressed, or hopeless: not at all Total score: 0 PHQ-9 3. Trouble falling or staying asleep, or sleeping too much: Not at all 4. Feeling tired or having little energy: Not at all 5. Poor appetite or overeating: Not at all 6. Feeling bad about yourself - or that you are a failure or have let yourself or your family down: Not at all 7. Trouble concentrating on things, such as reading the newspaper or watching television: Not at all 8. Moving or speaking so slowly that other people could have noticed? - Or the opposite - being so fidgety or restless that you have been moving around a lot more than usual: not at all 9. Thoughts that you would be better off or of hurting yourself in some way: Not at all Total score: 0 Source: Developed by Drs. Jere Glover, Jennie Maria, Vu Torres and colleagues, with an educational charlie from [employer]. Depression screen completed yes Social History Living Situation History Marital Status: Single Lives With: Children Housing: House Tobacco History Smoking Status: Never smoker Second Hand Smoke Exposure: No Alcohol History Alcohol Intake: Never Domestic Abuse History Do You Feel Safe at Home: Yes History of Present Illness HPI Narrative Consultation for pelvic mass Patient is a 44-year-old presenting for consultation regarding a pelvic mass. The patient was referred from [facility] for evaluation of a palpable abdominal mass that has been present for years. She has a history of section in 2019, during which an 8-centimeter leiomyoma was noted in the anterolateral uterine corpus. The patient also experienced a miscarriage following that delivery. The fibroid has significantly increased in size from 8 centimeters in 2019 to 22 centimeters currently. The patient reports experiencin g bleeding and anemia, which she attributes to the tumor. She denies having diabetes or high blood pressure. Medical History: - Anemia secondary to uterine fibroid bleeding Surgical History: - section in 2019, during which an 8 centimeter leiomyoma was noted in the anterolateral uterine corpus Obstetric History: - GPAL: A0 L3 - 2019: Delivered via section with large 8-centimeter leiomyoma noted in anterolateral uterine corpus - Had one miscarriage - CT scan of abdomen and pelvis: No focal liver or biliary tract dilatation, no gallstones, spleen not enlarged, no pancreatic mass or peripancreatic edema, normal adrenals, no renal or ureteral calculi, no hydronephrosis, normal aorta, normal appendix, very large pelvic mass measuring 22.4 x 12 x 19 cm (may be part of uterus, ovarian tumors not excluded), contracted urinary bladder, osseous structures intact - Previous imaging (2019): Large leiomyoma approximately 8 cm in anterolateral uterine corpus identified during Exam General General Appearance: alert, in no apparent distress and healthy appearing Head Head exam: atraumatic Neck Neck exam: Present normal inspection and trachea midline Chest Chest inspection: Present normal inspection and symmetric chest wall rise External exam: Present normal external exam; Absent tenderness Neuro Neurological exam: Present oriented X3 Psych Psychiatric exam: Present normal affect and normal mood Office Procedures O[facility] Clinic LOC & Office Proc's Nursing/Assessment Patient Status: Established Patient OB Clinic Nursing Assessment: Medication Reconciliation, Update PMH in EMR and Vital Signs OB Clinic Coordination of Care: Complex Care and Chronic Disease 1-5, Consent,records obtained, informed consent, Education Simp Pt/Fam, 1 Ins Authorization, Lab and Imaging orders, Results/Orders obtained and Staff clarify orders Established Patient Charge Established Patient Point Assignment: 120 Established Patient Point Charge: EP Level 4 (120-155) Assessment & Plan Diagnosis / Problem List (1) Leiomyoma in , uterine, antepartum: Status: Acute Plan Large uterine fibroid Assessment: CT scan of abdomen and pelvis reveals a very large pelvic mass measuring 22.4 by 12 by 19 cm, which may be part of the uterus with ovarian tumors not excluded. Patient has a history of in 2019 during which an 8 cm leiomyoma was noted in the anterolateral uterine corpus. The fibroid has significantly enlarged from 8 cm to 22.4 cm over approximately 6 years. The mass has been palpable for years according to imaging indication. Plan: - Surgical removal via previous incision approach - Patient opted for total hysterectomy (removal of uterus and fibroid) rather than myomectomy alone - Informed consent provided: hysterectomy will result in cessation of menstrual periods and menopause, ovaries will be preserved; myomectomy alone carries 10- 15% risk of fibroid recurrence requiring future surgery - Submit insurance authorization request - Schedule surgery once insurance approval obtained - Obtain preoperative blood tests - Follow-up appointment scheduled after insurance approval Anemia Assessment: Patient has anemia secondary to bleeding from the large uterine fibroid. Plan: - Anemia expected to resolve following surgical removal of fibroid - Preoperative blood tests ordered
== END 2025-06-16 11:52 | disposition home or self-care (01) ==
LOC: HODSOBC 11:05
PROVIDERS: PCP Physician Assistant; Referring Provider Physician Assistant; Supervising Provider Obstetrics & Gynecology; Visit Provider Obstetrics & Gynecology
DX: D25.9 Leiomyoma of uterus, unspecified (principal); D50.0 Iron deficiency anemia secondary to blood loss (chronic)
CPT/HCPCS: 99214; G0463

== ENCOUNTER 2025-07-05 05:41 | Emergency (ER) | payer MEDICAID, SELFPAY ==
[2025-07-05 05:50] VITALS: BP 156/71; PULSE 82; RESP 17; TEMP 36.8; O2SAT 99
--- NOTE | 2025-07-05 05:50 | XR_ITS ---
Examination: CT brain head without contrast. 2-D sagittal coronal reconstructions Date and time of exam: July 05, 2025, 0608 hours COMPARISON: Main 04/2025 INDICATIONS: Headache today CTDI: vol (mGy): 50.50 DLP: (mGycm): 975 Technique: Multiple CT axial sections of the brain have been obtained, 5 mm slice thickness. Contrast has not been administered. 2-D sagittal, coronal reconstructions have been obtained Low dose protocols were performed. One or more of the following dose reduction techniques were used; automated exposure control, adjustment of the mA and/or KV according to patient size, use of iterative reconstruction technique. Findings: No significant ventricular enlargement. Intra-axial or extra-axial hemorrhage density is not seen. No mass effect or midline shift Basal cisterns are not remarkable. Fourth ventricle is midline. Cranial vault intact. Impression: Negative for acute hemorrhage, mass effect or midline shift Chronic maxillary sinusitis including 14 mm retention cyst in the right maxillary antrum
--- NOTE | 2025-07-05 05:51 | PD.EDRME ---
Rapid Medical Screening Exam RME Arrival date/time: 07/05/25 05:41 This is a case of 45-year-old female with history of anemia came in due to headache no injury no trauma Chief Complaint: Headache Time Seen by Provider: 07/05/25 05:50 Vital signs: Vital Signs Temperature 98.2 F 07/05/25 05:50 Pulse Rate 82 07/05/25 05:50 Respiratory Rate 17 07/05/25 05:50 Blood Pressure 156/71 H 07/05/25 05:50 Pulse Oximetry (%) 99 07/05/25 05:50 Oxygen Delivery Method Room Air 07/05/25 05:50 Exam: Neurological exam is normal awake alert oriented x 4 no focal deficits Clinical Impression: Headache
[2025-07-05 06:01] LABS: Basophils # (Auto) 0.1 Thou/mm3 (0.0-0.2); Basophils % (Auto) 1 % (0-2.5); Eosinophils # (Auto) 0.2 Thou/mm3 (0.0-0.5); Eosinophils % (Auto) 3 % (0-10); Hematocrit 26.9 % (36.0-46.0); Immature Granulocytes Auto 0.04 Thou/mm3 (0.00-0.00); Lymphocytes # (Auto) 2.2 Thou/mm3 (1.0-4.8); Lymphocytes % (Auto) 34 % (10-50); Mean Corpuscular HGB Conc 30.5 g/dl (31.0-37.0); Mean Corpuscular Hemoglobin 22.5 pg (25.0-35.0); Mean Corpuscular Volume 74 fL (80-100); Monocytes # (Auto) 0.5 Thou/mm3 (0.0-0.8); Monocytes % (Auto) 7 % (0-12); Neutrophils # (Auto) 3.3 Thou/mm3 (1.8-7.7); Neutrophils % (Auto) 53 % (37-80); Nucleated Red Blood Cell # 0.00 Thou/mm3 (0.00-0.00); Nucleated Red Blood Cell % 0 /100 WBC (0); Platelet Count 327 Thou/mm3 (140-440); RDW Standard Deviation 50.0 fL (36.4-46.3); Red Blood Count 3.64 Miln/mm3 (4.00-5.20); White Blood Count 6.3 Thou/mm3 (3.6-11.0)
[2025-07-05 06:03] LABS: Hemoglobin 8.2 g/dL (12.0-16.0)
[2025-07-05 06:20] LABS: Alanine Aminotransferase 64 U/L (10-49); Albumin, Serum 4.4 gm/dL (3.5-5.0); Albumin/Globulin Ratio 1.4 (1.2-2.2); Alkaline Phosphatase 81 U/L (46-116); Anion Gap 9 (7-16); Aspartate Amino Transferase 58 U/L (0-34); BUN/Creatinine Ratio 13 Ratio (12-20); Bilirubin,Total 0.5 mg/dL (0.3-1.2); Blood Urea Nitrogen 8 mg/dL (9-23); Calcium 8.8 mg/dL (8.3-10.6); Calcium (Corrected) 8.8 mg/dL (8.5-10.1); Carbon Dioxide 22.9 mMol/L (20.0-31.0); Chloride 109 mMol/L (98-107); Creatinine (Component) 0.6 mg/dL (0.6-1.3); Globulin 3.1 gm/dL (2.3-3.5); Glucose 93 mg/dL (74-106); Osmolality,Calculated 279 (275-295); Potassium 3.6 mMol/L (3.4-5.1); Sodium 141 mMol/L (136-145); Total Protein 7.5 gm/dL (5.7-8.2); eGFR > 60 See Note
[2025-07-05 06:47] LABS: Collection Type, Urine Clean Catch
--- NOTE | 2025-07-05 06:52 | EDNOTE_ITS ---
ED General RME/HPI General Chief complaint: Headache Stated complaint: HEADACHE Time Seen by Provider: 07/05/25 05:50 Arrival date/time: 07/05/25 05:41 RME / HPI RME / HPI narrative: 45-year-old female with past medical history of leiomyoma, chronic anemia who is currently following with [facility] outpatient to have a removal of her fibroid as it is of a significant size and believed to be the cause of her anemia. Patient states that she developed a frontal headache which feels like a band which started about 3 days ago gradual in onset similar to previous headaches and intermittent in nature. Denies any chest pain, shortness of breath, loss of vision, double vision, numbness, dizziness, tingling, weakness, speech changes, fever, vomiting, trauma. Impression: Headache Related Data Home Medications ?Medication ?Instructions ?Recorded ?Confirmed vits no.124-ferrous fum 1 tab PO QDAY 9 06/16/25 27 mg iron-folic acid 800 mcg tablet ( Vitamin) Previous Rx's ?Medication ?Instructions ?Recorded [id number]-[id number]-jivtrnvm 250 1 tab PO Q6H PRN he adache #20 tabs 12/26/24 mg-250 mg-65 mg tablet (Excedrin Migraine) ondansetron 4 mg disintegrating 4 mg PO Q8H PRN nausea and 12/26/24 tablet vomiting #20 tabs ferrous sulfate 325 mg (65 mg 325 mg PO BID #60 tabs 0 01/24/25 iron) tablet Allergies Allergy/AdvReac Type Severity Reaction Status Date / Time No Known Allergies Allergy Verified 07/05/25 05:41 Review of Systems Review of Systems Systems Reviewed: All systems reviewed, normal except as documented ED Exam Narrative Physical exam: Constitutional: Patient alert and oriented. Well appearing. No acute distress. Not toxic appearing. Head: Normocephalic, atraumatic. Eyes: Periorbital regions bilaterally normal to inspection. Conjunctiva clear bilaterally. Sclera anicteric bilaterally. Pupils equal, round, reactive to light bilaterally. Extraocular movements intact bilaterally. Mouth/Throat: Mucous membranes moist. No stridor or muffled voice. No trismus. Handling secretions without difficulty. Airway widely patent. Neck: Supple. Trachea midline. No JVD. No nuchal rigidity. Normal range of motion. Respiratory: Normal effort. No accessory muscle use or respiratory distress. Lungs clear to auscultation bilaterally without rhonchi, wheezes, or crackles. Cardiovascular: RRR. Normal S1/S2. No murmurs or rubs. Radial pulses intact bilaterally. Back: No midline tenderness or step-offs. No CVA tenderness to palpation bilaterally. Upper Extremities: No gross deformities. Lower Extremities: No gross deformities. No edema or calf tenderness. Neuro: Speech normal. No gross motor or sensory deficits to upper or lower extremities bilaterally. GCS 15. CN II?XII grossly intact. Cerebellar: Pzjmoh-xx-ffyt testing normal. Rapid alternating movements intact. Normal gait observed. Romberg negative. Skin: Warm, dry, normal color. Psych: Normal affect. Cooperative. Normal insight. Course Quality Measures none Orders Category Date Time Status CT head/brain wo con Stat Exams 07/05/25 05:50 Completed CBC Stat Lab 07/05/25 05:54 Completed Comprehensive Metabolic Panel Stat Lab 07/05/25 05:54 Completed HCG Qualitative,Urine Stat Lab 07/05/25 06:42 Completed Urinalysis Stat Lab 07/05/25 06:42 Completed DiphenhydrAMINE [Benadryl] Med 07/05/25 06:31 Discontinued 25 mg PO X1 ONE Ketorolac Inj [Toradol Inj] Med 07/05/25 06:31 Discontinued 30 mg IM X1 ONE Prochlorperazine Inj [Compazine Inj] Med 07/05/25 06:31 Discontinued 10 mg IM X1 ONE Reevaluation(s) Reevaluation #1: At the time of reassessment, the patient remains alert and oriented ?3 with GCS 15. Vitals are normal, pain is controlled, and the patient is tolerating oral intake without nausea or vomiting. The patient is agreeable to discharge and verbalizes understanding of the diagnosis, studies, treatment plan, medications (including side effects/precautions), and strict ER return precautions as discussed in the ED. All concerns were addressed, and the patient is comfortable with the plan. Patient was advised to follow-up with her [facility] in the next 1 to 2 days as well as double her iron intake by taking her ferrous sulfate in the morning and at night along with using MiraLAX to help combat her constipation that she gets when she takes. Patient states she has only been taking 1 a day. I advised her to ask her [facility] if she would be willing to provide her with an expedited outpatient iron infusion. Time: 07:10 Vital Signs Vital signs: Vital Signs Temperature 98.2 F 07/05/25 05:50 Pulse Rate 82 07/05/25 05:50 Respiratory Rate 17 07/05/25 05:50 Blood Pressure 156/71 H 07/05/25 05:50 Pulse Oximetry (%) 99 07/05/25 05:50 Oxygen Delivery Method Room Air 07/05/25 05:50 Discharge Plan Plan Patient Disposition: HOME (Self Care) Patient condition on transfer: Stable Prescriptions/Referrals Prescriptions/Med Rec: No Action Vitamin 27 mg iron- 800 mcg Tablet 1 tab PO QDAY ferrous sulfate 325 mg (65 mg iron) tablet 325 mg PO BID Qty: 60 0RF Excedrin Migraine 250-250-65 mg tablet 1 tab PO Q6H PRN (Reason: headache) Qty: 20 0RF ondansetron 4 mg tablet,disintegrating 4 mg PO Q8H PRN (Reason: nausea and vomiting) Qty: 20 0RF Referrals: Katrina Jean-Baptiste PA-C [Primary Care Provider] - In 1 week Problem List Clinical Impression: Anemia, Headache Patient/Caregiver Discharge Instructions Education Materials: Anemia, Iron Supplements, Understanding Headache Pain Additional Instructions: Follow up with your primary medical doctor and your [facility] doctor within 24 hours. Return to the Emergency Room immediately for any new, worsening, continuing symptoms or any concerns at all. Return to the Emergency Room within 24 hours if you are unable to follow up with your primary medical doctor and your [facility] doctor within 24 hours. Print Language: Bengali Stand Alone Forms: Vernell Award Info., Patient Portal Info Letter NANETTE Supervising Physician NANETTE Supervising Physician: Dr. Banks MDM Narrative [facility] hospital course (for use when minimal MDM required): This patient's evaluation indicates the cause of the headache is very likely benign. Patient was offered pain medication however she declined, as she was mainly concerned about her anemia, her pain is well-controlled without additional medication here in the ER patient appears comfortable. the most serious possible causes of headache, including hemorrhage and infection, have been excluded based upon today's assessment. CT imaging was performed without acute findings at this time. The patient has nonetheless been warned to return immediately for worsening symptoms, change in pattern of current symptoms, or other acute problems. Labs Lab(s) Interpretation(s): CBC is notable for moderate microcytic microchromic anemia with a hemoglobin of 8.2, patient's prior hemoglobin in January was 6.5 therefore it is minimally improved, RDW is minimally elevated at 50 CMP is notable for chloride minimally elevated 109, AST minimally elevated at 58, ALT minimally elevated 64 otherwise no severe metabolic or electrolyte abnormality UA notable for microscopic hematuria and negative there is no signs of infection here Imaging Imaging Interpretation(s): CT brain with chronic maxillary sinusitis and a 14mm retention cyst and sinuses however no acute intracranial abnormality. Medication Administration(s) Medication Administration History Discontinued Medications Diphenhydramine HCl (Diphenhydramine Elix 25 Mg/10 Ml Udc) 25 mg PO X1 ONE Stop: 07/05/25 06:32 Last Admin: 07/05/25 06:55 Dose: Not Given Documented By: CVL Non-Admin Reason: Patient Refused Ketorolac Tromethamine (Ketorolac Inj 30 Mg/Ml Vial) 30 mg IM X1 ONE Stop: 07/05/25 06:32 Last Admin: 07/05/25 06:55 Dose: Not Given Documented By: CVL Non-Admin Reason: Patient Refused Prochlorperazine Edisylate (Prochlorperazine Inj 5 Mg/Ml Vial 2 Ml) 10 mg IM X1 ONE; Protocol Stop: 07/05/25 06:32 Last Admin: 07/05/25 06:55 Dose: Not Given Documented By: CVL Non-Admin Reason: Patient Refused
[2025-07-05 08:01] LABS: HCG Qualitative,Urine Negative
[2025-07-05 08:02] LABS: Bilirubin,Urine Negative (Negative); Blood,Urine 3+ (Negative); Clarity,Urine Clear (Clear/Hazy); Glucose, Urine Negative (Negative); Ketones,Urine Negative (Negative); Leukocyte Esterase,Urine Negative (Negative); Nitrite,Urine Negative (Negative); PH,Urine 6.5 (5.0-7.0); Protein,Urine Trace (Neg - Trace); RBC,Urine 56 /hpf (0-3); Specific Gravity,Urine 1.005 (1.001-1.035); Squamous Epithelial Cell,Urine 5 /hpf (0-5); Urobilinogen,Urine Negative mg/dL (0.0-1.0); WBC,Urine 1 /hpf (0-5)
[2025-07-05 08:03] LABS: Color,Urine Lt-Red (Lt Yel-Yel)
== END 2025-07-05 09:55 | disposition home or self-care (01) ==
PROVIDERS: Nurse Practitioner Family; Emergency Provider Emergency Medicine; PCP Physician Assistant
DX: R51.9 Headache, unspecified (principal); D64.9 Anemia, unspecified
CPT/HCPCS: 36415; 70450; 80053; 81001; 81025; 85025; 99283

== ENCOUNTER → 2025-07-22 | Outpatient (CLI) | payer MEDICAID, SELFPAY ==
[2025-07-21 10:21] LABS: Basophils # (Auto) 0.0 Thou/mm3 (0.0-0.2); Basophils % (Auto) 1 % (0-2.5); Eosinophils # (Auto) 0.2 Thou/mm3 (0.0-0.5); Eosinophils % (Auto) 4 % (0-10); Hematocrit 20.4 % (36.0-46.0); Immature Granulocytes Auto 0.04 Thou/mm3 (0.00-0.00); Lymphocytes # (Auto) 2.1 Thou/mm3 (1.0-4.8); Lymphocytes % (Auto) 38 % (10-50); Mean Corpuscular HGB Conc 29.9 g/dl (31.0-37.0); Mean Corpuscular Hemoglobin 21.9 pg (25.0-35.0); Mean Corpuscular Volume 73 fL (80-100); Monocytes # (Auto) 0.4 Thou/mm3 (0.0-0.8); Monocytes % (Auto) 7 % (0-12); Neutrophils # (Auto) 2.8 Thou/mm3 (1.8-7.7); Neutrophils % (Auto) 49 % (37-80); Nucleated Red Blood Cell # 0.04 Thou/mm3 (0.00-0.00); Nucleated Red Blood Cell % 1 /100 WBC (0); Platelet Count 292 Thou/mm3 (140-440); RDW Standard Deviation 48.5 fL (36.4-46.3); Red Blood Count 2.79 Miln/mm3 (4.00-5.20); White Blood Count 5.6 Thou/mm3 (3.6-11.0)
[2025-07-21 10:23] LABS: Hemoglobin 6.1 g/dL (12.0-16.0)
[2025-07-21 10:27] LABS: INR 1.0 (0.9-1.3); Partial Thromboplastin Time 22.5 Seconds (22.0-36.0); Prothrombin Time 10.7 Seconds (9.0-12.2)
[2025-07-21 10:41] LABS: HCG,Qualitative Serum Negative
--- NOTE | 2025-07-22 09:30 | XR_ITS ---
Examinations: Ultrasound-guided percutaneous breast biopsy, right retroareolar nodule Right breast sonography Limited. Exam date and time: July 22, 2025, 1006 hours INDICATIONS: BI-RADS 4 suspicious nodule retroareolar region right breast on right breast sonogram May 29, 2025. Informed consent provided. Technique: A timeout was completed verifying correct patient, procedure, site, positioning, and special equipment if applicable Informed consent provided. The patient was placed in a supine position for the breast biopsy. Sonographic images of the breast were performed for localization of the suspicious nodule The patient's breast was prepped and draped in sterile fashion. Maximum sterile barrier technique, hand hygiene, ultrasound sterile technique 1% lidocaine was used to anesthetize the skin and breast adjacent to the suspicious nodule. Utilizing ultrasonographic guidance, 8 core biopsies were obtained of the suspicious nodule utilizing an 18-gauge BioPince needle. The specimens appears satisfactory. . Estimated blood loss 3 cc. The patient tolerated the procedure well and there were no complications. Impression: Successful ultrasound-guided percutaneous breast biopsy, right breast retroareolar nodule.
== END | disposition home or self-care (01) ==
LOC: SDIM 08:53
PROVIDERS: Radiology Diagnostic Radiology; PCP Physician Assistant; Referring Provider Physician Assistant; Visit Provider Physician Assistant
DX: N63.41 Unspecified lump in right breast, subareolar (principal)
CPT/HCPCS: 19083; 36415; 84703; 85025; 85610; 85730

== ENCOUNTER 2025-08-05 11:34 | Outpatient (AMB) | payer MEDICAID, SELFPAY ==
[2025-08-05 12:09] VITALS: BP 127/69; PULSE 101; RESP 18; TEMP 36.2; O2SAT 98; BMI 35.9
--- NOTE | 2025-08-05 12:09 | GYNCLNT_ITS ---
Vital Signs 08/05/25 12:09 Height 1.55 m Height Method Stated Weight 86.183 kg Weight Measurement Method Standing Scale BMI 35.9 BP 127/69 Blood Pressure Source Automatic Cuff Blood Pressure Location Left Upper Arm Position Sitting Respiration 18 Pulse 101 H Pulse Source Monitor Temp 97.2 F Temp Source Oral Pulse Oximetry (%) 98 Oxygen Delivery Method Room Air Allergies/Home Meds Allergies & Medications Allergies No Known Allergies Allergy (Verified 08/06/25 07:17) Medication Reconciliation ondansetron 4 mg disintegrating tablet 4 mg PO Q8H PRN nausea and vomiting #20 tabs 12/26/24 [Rx Confirmed 08/06/25] ferrous sulfate 325 mg (65 mg iron) tablet 325 mg PO BID #60 tabs 01/24/25 [Rx Confirmed 08/06/25] acetaminophen 500 mg tablet 500 mg PO Q4H PRN pain 08/05/25 [History Confirmed 08/06/25] folic acid 1 mg tablet 1 mg PO DAILY 08/05/25 [History Confirmed 08/06/25] omeprazole 20 mg capsule,delayed release 20 mg PO DAILY 08/05/25 [History Confirmed 08/06/25] Intake Visit Data Collection New Patient or Established: Established Patient (seen at [facility] within 3 years) Reason for Visit:: pre-op Seen by Clinical Staff ONLY (RN/MA): No Discovery Manager Required: No Do You Feel Safe at Home: Yes Authorities Contacted: N/A PCP or OBGYN visit in last 3 months: Yes Hx Now: No Are you currently on any form of Control: No Pain Present Currently: No Pain Scale Used: Recinos-Khanna/Numerical Pain scale:: 0 Smoking Status Smoking Status: Never smoker Immunizations Flu Vaccine in the Last 12 Months: No Flu Vaccine Exclusion Criteria: No Exclusion Criteria Office Helper Clerical history Office Helper Clerical History Menstrual regularity: regular Flow: normal Monthly: Yes Age at menarche: 11 Menopausal: No Currently sexually active: Yes PRODUCT TESTER: Past Medical History Past Medical History: No Hx Neurological Disorders, No Hx Breast Cancer, No Hx Cardiac Disorders, No Hx Cancer, Yes Hx Blood Disorders, Yes Hx Anemia, No Hx Gastrointestinal Disorders, No Hx Renal Disease, No Hx Diabetes Mellitus Type 1 and No Hx Diabetes Mellitus Type 2 Questionnaires Covid-19 Vaccine Questionnaire Has patient been vacinated for Covid-19 Have you been vacinated for Covid-19: Yes PHQ-9 PHQ-2 Over the last 2 weeks, how often have you been bothered by any of the following problems? 1. Little interest or pleasure in doing things: not at all 2. Feeling down, depressed, or hopeless: not at all Total score: 0 PHQ-9 3. Trouble falling or staying asleep, or sleeping too much: Not at all 4. Feeling tired or having little energy: Not at all 5. Poor appetite or overeating: Not at all 6. Feeling bad about yourself - or that you are a failure or have let yourself or your family down: Not at all 7. Trouble concentrating on things, such as reading the newspaper or watching television: Not at all 8. Moving or speaking so slowly that other people could have noticed? - Or the opposite - being so fidgety or restless that you have been moving around a lot more than usual: not at all 9. Thoughts that you would be better off or of hurting yourself in some way: Not at all Total score: 0 If you checked off any problems, how difficult have these problems made it for you to do your work, take care of things at home, or get along with other people?: not difficult at all Source: Developed by Drs. Jere Glover, Jennie Maria, Vu Torres and colleagues, with an educational charlie from [employer]. Depression screen completed yes Social History Living Situation History Lives With: Children Housing: House Tobacco History Smoking Status: Never smoker Second Hand Smoke Exposure: No Alcohol History Alcohol Intake: Never Domestic Abuse History Do You Feel Safe at Home: Yes History of Present Illness HPI Narrative Angelique Moeller presents scheduled for hysterectomy tomorrow for treatment of uterine fibroids. The patient has completed pre-operative hospital testing and preparations. The fibroids are located within the uterus, necessitating removal of the entire uterus while preserving the ovaries, which appear healthy. The patient is prepared for a 2-night hospital stay with discharge planned for Sunday, and anticipates a 2-month recovery period, though this may be shortened if healing progresses more rapidly than expected. ROS: Negative except as stated above, limited to PRODUCT TESTER and pertinent complaints. Exam General General Appearance: alert, in no apparent distress and healthy appearing Head Head exam: atraumatic Neck Neck exam: Present normal inspection and trachea midline Chest Chest inspection: Present normal inspection and symmetric chest wall rise External exam: Present normal external exam; Absent tenderness Neuro Neurological exam: Present oriented X3 Psych Psychiatric exam: Present normal affect and normal mood Office Procedures OBC Clinic LOC & Office Proc's Nursing/Assessment Patient Status: Established Patient OB Clinic Nursing Assessment: Medication Reconciliation, Update PMH in EMR and Vital Signs OB Clinic Coordination of Care: Consent,records obtained, informed consent, Education Simp Pt/Fam, Lab and Imaging orders, Results/Orders obtained and Staff clarify orders Established Patient Charge Established Patient Point Assignment: 80 Established Patient Point Charge: EP Level 3 (80-115) Assessment & Plan Diagnosis / Problem List (1) Leiomyoma in , uterine, antepartum: Status: Acute Plan Uterine Fibroids: - Patient has uterine fibroids requiring surgical intervention. - The fibroids are part of the uterus necessitating removal of the entire uterus. - Ovaries appear healthy and will be preserved to avoid menopausal symptoms including hot flashes. Plan: - Hysterectomy scheduled for tomorrow with fibroid removal. - Ovarian preservation planned given healthy appearance. - Hospital stay anticipated for 2 nights with discharge on Sunday. - Recovery period expected for 2 months, though may be shortened if patient recovers sooner. - Complete required forms (Vietnamese TON office form) and bring to surgery. - Follow-up appointment scheduled in 4 weeks.
== END 2025-08-05 12:04 | disposition home or self-care (01) ==
LOC: HODSOBC 11:34
PROVIDERS: Supervising Provider Obstetrics & Gynecology; Visit Provider Obstetrics & Gynecology
DX: D25.9 Leiomyoma of uterus, unspecified (principal)
CPT/HCPCS: 99213; G0463

== ENCOUNTER 2025-08-06 05:40 | Inpatient (IN) | payer MEDICAID, SELFPAY ==
[2025-08-05 10:48] VITALS: BMI 37.2
[2025-08-05 11:36] LABS: Basophils # (Auto) 0.1 Thou/mm3 (0.0-0.2); Basophils % (Auto) 1 % (0-2.5); Eosinophils # (Auto) 0.2 Thou/mm3 (0.0-0.5); Eosinophils % (Auto) 3 % (0-10); Immature Granulocytes Auto 0.04 Thou/mm3 (0.00-0.00); Lymphocytes # (Auto) 2.5 Thou/mm3 (1.0-4.8); Lymphocytes % (Auto) 38 % (10-50); Mean Corpuscular HGB Conc 29.9 g/dl (31.0-37.0); Mean Corpuscular Hemoglobin 21.1 pg (25.0-35.0); Mean Corpuscular Volume 70 fL (80-100); Monocytes # (Auto) 0.5 Thou/mm3 (0.0-0.8); Monocytes % (Auto) 8 % (0-12); Neutrophils # (Auto) 3.2 Thou/mm3 (1.8-7.7); Neutrophils % (Auto) 49 % (37-80); Nucleated Red Blood Cell # 0.10 Thou/mm3 (0.00-0.00); Nucleated Red Blood Cell % 2 /100 WBC (0); Platelet Count 393 Thou/mm3 (140-440); RDW Standard Deviation 44.9 fL (36.4-46.3); Red Blood Count 2.66 Miln/mm3 (4.00-5.20); White Blood Count 6.4 Thou/mm3 (3.6-11.0)
[2025-08-05 11:57] LABS: Alanine Aminotransferase 29 U/L (10-49); Albumin, Serum 4.3 gm/dL (3.5-5.0); Albumin/Globulin Ratio 1.5 (1.2-2.2); Alkaline Phosphatase 76 U/L (46-116); Anion Gap 10 (7-16); Aspartate Amino Transferase 25 U/L (0-34); BUN/Creatinine Ratio 13 Ratio (12-20); Bilirubin,Total 0.6 mg/dL (0.3-1.2); Blood Urea Nitrogen 8 mg/dL (9-23); Calcium 8.6 mg/dL (8.3-10.6); Calcium (Corrected) 8.6 mg/dL (8.5-10.1); Carbon Dioxide 24.0 mMol/L (20.0-31.0); Chloride 108 mMol/L (98-107); Creatinine (Component) 0.6 mg/dL (0.6-1.3); Estimated Creatinine Clearance 113.3 mL/min (>60); Globulin 2.9 gm/dL (2.3-3.5); Glucose 97 mg/dL (74-106); Osmolality,Calculated 281 (275-295); Potassium 3.8 mMol/L (3.4-5.1); Sodium 142 mMol/L (136-145); Total Protein 7.2 gm/dL (5.7-8.2); eGFR > 60 See Note
[2025-08-05 12:20] LABS: HCG,Qualitative Serum Negative
[2025-08-05 12:30] LABS: Hemoglobin 5.6 g/dL (12.0-16.0)
[2025-08-05 12:31] LABS: Hematocrit 18.7 % (36.0-46.0)
--- NOTE | 2025-08-05 12:54 | SUR.PREOP ---
Dr Ibrahim notified of Hgb 5.7, 3 units of PRBC ordered to be transfused tomorrow before surgery, Pt notified of low Hgb and to come tomorrow at 0530.
[2025-08-06] VITALS (30 sets, daily range): BP systolic 107–148; BP diastolic 62–80; PULSE 67–84; RESP 11–20; TEMP 36.1–37.1; O2SAT 93–100; BMI 36.9
--- NOTE | 2025-08-06 14:18 | PD.GYNPROC ---
Operative Note - [employer]IDENTIAL SALES REP Procedure Date of procedure: 08/06/25 Procedure Performed: Total abdominal hysterectomy via supraumbilical vertical laparotomy Bilateral salpingectomy Indication: 45-year-old with symptomatic leiomyomas of uterus palpated above the umbilicus Anesthesia type: General Procedure description: Informed consent was obtained. The patient was brought to the operating room and identified using two patient identifiers. General anesthesia was induced and the patient was positioned in the supine position. The abdomen and perineum were prepped and draped in the usual sterile fashion. A Slaughter catheter was inserted for continuous drainage. A surgical timeout was completed. A midline vertical laparotomy incision was made beginning at the pubic symphysis and extended superiorly approximately one inch above the umbilicus. The incision was carried sharply through the subcutaneous tissue down to the rectus fascia. The fascia was incised vertically and the incision was carefully extended both superiorly and inferiorly with appropriate retraction and protection of underlying structures. The rectus muscles were in the midline and the peritoneum was entered bluntly using the surgeon?s finger. The peritoneal opening was extended and an Sang retractor was placed for exposure. Upon entry, the uterus was palpated and noted to be extremely enlarged, with the dominant right-sided leiomyoma extending superiorly and nearly contacting the right hemidiaphragm. The uterus was carefully elevated and delivered into the operative field through the incision. Dissection was initiated on the right side. The right fallopian tube was dissected and divided, followed by the right utero-ovarian ligament, and then the right round ligament. Anterior and posterior broad ligament leaves were opened and peritoneal and bladder adhesions were sharply dissected down. Attention was then turned to the left side. The left fallopian tube was dissected and divided, followed by division of the left utero?ovarian ligament, and dissection was carried inferiorly until the left round ligament was divided. The bladder flap was sharply developed, reflecting the bladder inferiorly down to the level of the cervix. Dissection along both lateral aspects of the uterus was continued using the ENSEAL device until the level of the endocervix was reached. The uterine vessels were controlled in the usual manner. The uterine fundus and body were amputated at the level of the uterine isthmus. The remaining cervix was grasped with multiple Smitha clamps, placed under traction, and parametrium and adnexal attachments were taken down to the level of the cardinal ligaments. The cervix was amputated using Ruchi scissors and removed from the operative field. The vaginal cuff was closed using 0 Vicryl in a running locked fashion. Hemostasis was confirmed. The uterus weighed at least 10 pounds grossly. The pelvis was irrigated, dried, and Surgicel was applied to raw surfaces. The Sang retractor was removed. The rectus muscles were re?approximated. The rectus fascia was closed using 1?0 PDS loop sutures, placed superiorly and inferiorly and tied in the midline. The subcutaneous layer was re?approximated in two planes, first using 1?0 Vicryl Stratafix, followed by 2?0 Monocryl Stratafix. The skin was closed with kadeem, and Dermabond Prineo dressing was applied. A sterile pressure dressing was applied. The patient tolerated the procedure well and was taken to the recovery room in stable condition. All sponge, lap, and instrument counts were correct ?2. Specimen: uterus, left tube and right tube Estimated blood loss (ml): 300 Complications: none Surgical staff Operation Date: 08/06/25 10:45 Case Staff Anesthesiologist: Roberto Fletcher air surveillance operator: Christina Lewis Diagnosis Discharge Diagnosis (1) Intramural leiomyoma of uterus: Status: Acute (2) Chronic blood loss anemia: Status: Acute (3) Status post laparotomy: Status: Acute Problem List Completed Was Problem List Reviewed/Reconciled?: Yes
--- NOTE | 2025-08-06 14:25 | SUR.PHASEI ---
pt received from OR in recovery bay 1. pt asleep but responds to voice, breathing unlabored on nc 4l. v/s stable. pt dressing to abd and peripad cdi. report received from Mehreen West and Dr. Fletcher.
[2025-08-06] MEDS: HYDROmorphone 1 MG/ML PCA SYRINGE 30ML PCA (15:08)
[2025-08-06] MEDS: SODIUM CHLORIDE 0.9% 1000 ML 1,000 ML 200 ML IV ×2 (15:17→20:51)
[2025-08-06 15:23] LABS: Basophils # (Auto) 0.1 Thou/mm3 (0.0-0.2); Basophils % (Auto) 0 % (0-2.5); Eosinophils # (Auto) 0.1 Thou/mm3 (0.0-0.5); Eosinophils % (Auto) 1 % (0-10); Hematocrit 26.6 % (36.0-46.0); Immature Granulocytes Auto 0.12 Thou/mm3 (0.00-0.00); Lymphocytes # (Auto) 1.1 Thou/mm3 (1.0-4.8); Lymphocytes % (Auto) 7 % (10-50); Mean Corpuscular HGB Conc 31.6 g/dl (31.0-37.0); Mean Corpuscular Hemoglobin 23.9 pg (25.0-35.0); Mean Corpuscular Volume 76 fL (80-100); Monocytes # (Auto) 0.4 Thou/mm3 (0.0-0.8); Monocytes % (Auto) 3 % (0-12); Neutrophils # (Auto) 13.5 Thou/mm3 (1.8-7.7); Neutrophils % (Auto) 89 % (37-80); Nucleated Red Blood Cell # 0.11 Thou/mm3 (0.00-0.00); Nucleated Red Blood Cell % 1 /100 WBC (0); Platelet Count 309 Thou/mm3 (140-440); RDW Standard Deviation 54.5 fL (36.4-46.3); Red Blood Count 3.52 Miln/mm3 (4.00-5.20); White Blood Count 15.2 Thou/mm3 (3.6-11.0)
[2025-08-06 15:37] LABS: Fibrinogen 216 mg/dL (175-375); INR 1.1 (0.9-1.3); Partial Thromboplastin Time 22.9 Seconds (22.0-36.0); Prothrombin Time 11.2 Seconds (9.0-12.2)
[2025-08-06 15:48] LABS: Hemoglobin 8.4 g/dL (12.0-16.0)
[2025-08-06 16:38] LABS: Path Review Blood Smear Sent to Pathologist
--- NOTE | 2025-08-06 17:22 | SUR.PHASEI ---
1635 Report received from Michela Flores RN , pt able to lift head off of pillow, following simple commands vitals stable no complaints continue to monitor pt vital signs and status. 1710 Transfer to room 359 in stable condition, no complaints, no change to abdomen dressing, resting comfortably.
[2025-08-06] MEDS: ONDANSETRON INJ 2 MG/ML INJ 2 ML 4 MG IV (19:11)
[2025-08-06] MEDS: ACETAMINOPHEN IVPB 1,000 MG/100 ML VIAL 250 MG IV ×2 (19:15→23:47)
[2025-08-07] VITALS (14 sets, daily range): BP systolic 114–144; BP diastolic 59–76; PULSE 60–80; RESP 11–18; TEMP 36.1–36.9; O2SAT 95–100
[2025-08-07] MEDS: SODIUM CHLORIDE 0.9% 1000 ML 1,000 ML 200 ML IV (02:47)
[2025-08-07] MEDS: ACETAMINOPHEN IVPB 1,000 MG/100 ML VIAL 250 MG IV ×2 (05:31→12:31)
[2025-08-07 06:00] LABS: Basophils # (Auto) 0.0 Thou/mm3 (0.0-0.2); Basophils % (Auto) 0 % (0-2.5); Eosinophils # (Auto) 0.0 Thou/mm3 (0.0-0.5); Eosinophils % (Auto) 0 % (0-10); Hematocrit 25.4 % (36.0-46.0); Immature Granulocytes Auto 0.05 Thou/mm3 (0.00-0.00); Lymphocytes # (Auto) 1.2 Thou/mm3 (1.0-4.8); Lymphocytes % (Auto) 9 % (10-50); Mean Corpuscular HGB Conc 31.1 g/dl (31.0-37.0); Mean Corpuscular Hemoglobin 23.6 pg (25.0-35.0); Mean Corpuscular Volume 76 fL (80-100); Monocytes # (Auto) 0.6 Thou/mm3 (0.0-0.8); Monocytes % (Auto) 5 % (0-12); Neutrophils # (Auto) 10.9 Thou/mm3 (1.8-7.7); Neutrophils % (Auto) 85 % (37-80); Nucleated Red Blood Cell # 0.07 Thou/mm3 (0.00-0.00); Nucleated Red Blood Cell % 1 /100 WBC (0); Platelet Count 278 Thou/mm3 (140-440); RDW Standard Deviation 54.2 fL (36.4-46.3); Red Blood Count 3.35 Miln/mm3 (4.00-5.20); White Blood Count 12.8 Thou/mm3 (3.6-11.0)
[2025-08-07 06:01] LABS: Hemoglobin 7.9 g/dL (12.0-16.0)
[2025-08-07 06:19] LABS: Anion Gap 9 (7-16); BUN/Creatinine Ratio 16 Ratio (12-20); Blood Urea Nitrogen 8 mg/dL (9-23); Calcium 7.6 mg/dL (8.3-10.6); Carbon Dioxide 22.4 mMol/L (20.0-31.0); Chloride 108 mMol/L (98-107); Creatinine (Component) 0.5 mg/dL (0.6-1.3); Estimated Creatinine Clearance 131.9 mL/min (>60); Glucose 108 mg/dL (74-106); Osmolality,Calculated 276 (275-295); Potassium 3.6 mMol/L (3.4-5.1); Sodium 139 mMol/L (136-145); eGFR > 60 See Note
--- NOTE | 2025-08-07 07:36 | ESPR_ITS ---
Documentation for date of: 08/07/25 AVIATION ELECTRONICS TECHNICIAN Subjective Subjective Interval history: Patient doing well this morning. Pain is adequately controlled on the current regimen. No incisional complaints, no chest pain, shortness of breath, breathing difficulties. Ambulating, tolerating p.o., Adequate UOP A.m. hemoglobin is 7.9, will transfuse 1 more unit of PRBC Exam Vital Signs Temp Pulse Resp BP Pulse Ox O2 Del Method O2 Flow Rate 97.0 F 80 13 130/59 L 99 Nasal Cannula 2 08/07/25 04:00 08/07/25 04:00 08/07/25 05:00 08/07/25 04:00 08/07/25 04:00 08/06/25 17:37 08/06/25 19:38 Constitutional Constitutional: no acute distress Routine HEENT Exam Head: Present normocephalic and atraumatic Eye: Present EOMI and PERRL ENT: Present mucous membranes moist Routine Neck Exam Neck: Present supple and trachea midline Routine Respiratory Exam Respiratory: Present chest non-tender, lungs clear, normal breath sounds and no resp distress Routine Cardiovascular Exam Cardiovascular: Present RRR Routine Abdominal Exam Abdominal: Present soft and normoactive bowel sounds Routine Extremities Exam Extremities: Present full ROM Routine Skin Exam Skin: Present intact and dry Routine Neurological Exam Neurological: Present alert, oriented X3 and CN II-XII intact Routine Psychiatric Exam Psychiatric: Present normal affect and normal thought process Urinary Catheter Management Cath placed during this visit: no AVIATION ELECTRONICS TECHNICIAN - PN: Obj Data Labs 08/07/25 04:10 08/07/25 04:10 Labs: Laboratory Results - last 24 hr 08/05/25 08/06/25 08/07/25 11:20 14:48 04:10 WBC 15.2 H D 12.8 H RBC 3.52 L 3.35 L Hgb 8.4 L D 7.9 L Hct 26.6 L 25.4 L MCV 76 L 76 L MCH 23.9 L 23.6 L MCHC 31.6 31.1 RDW Std Deviation 54.5 H 54.2 H Plt Count 309 D 278 D Neut % (Auto) 89 H 85 H Lymph % (Auto) 7 L 9 L [place] % (Auto) 3 5 Eos % (Auto) 1 0 Baso % (Auto) 0 0 Neut # (Auto) 13.5 H 10.9 H Lymph # (Auto) 1.1 1.2 [place] # (Auto) 0.4 0.6 Eos # (Auto) 0.1 0.0 Baso # (Auto) 0.1 0.0 Immature Gran # (Auto) 0.12 H 0.05 H Absolute Nucleated RBC 0.11 H 0.07 H Immature Gran % 1 H 0 Nucleated RBC % 1 H 1 H Smear Path Review Sent to Pathologist PT 11.2 INR 1.1 APTT 22.9 Fibrinogen 216 Sodium 139 Potassium 3.6 Chloride 108 H Carbon Dioxide 22.4 Anion Gap 9 BUN 8 L Creatinine 0.5 L Estim Creat Clear Calc 131.9 eGFR > 60 BUN/Creatinine Ratio 16 Glucose 108 H Calculated Osmolality 276 Calcium 7.6 L Blood Type O Positive Antibody Screen NEGATIVE Crossmatch See Detail Blood Bank Wristband ID Yes Blood Bank Comment FFP Ready AVIATION ELECTRONICS TECHNICIAN - A/P Assessment and plan (1) Intramural leiomyoma of uterus: Status: Acute Assessment and plan: Patient is postoperative day #1 status post laparotomy with total abdominal hysterectomy for large leiomyoma Continue routine postoperative care. Will keep Slaughter catheter for 24 hours from surgery Transfuse 1 more unit of packed RBC and repeat CBC in the PM (2) Chronic blood loss anemia: Status: Acute (3) Status post laparotomy: Status: Acute Postoperative Procedures: Procedures Operation Date: 08/06/25 10:45 Actual Procedure Side Surgeon p abdominal hysterectomy, bilateral salpingectomy Malcolm Ibrahim MD Time Spent With Patient Time: Total time spent is greater than 50% in coordination of care (as documented) at patient's floor/unit and/or counseling patient: Time with patient: less than 15 minutes
--- NOTE | 2025-08-07 07:36 | PC.NURSE ---
DR. NEW CALLED THIS MORNING TO INFUSE 1 UNIT OF PRBCS. ORDER RECEIVED READ BACK AND CARRIED OUT.
[2025-08-07] MEDS: DOCUSATE SOD 100 MG CAPSULE PO (08:19)
[2025-08-07] MEDS: SODIUM CHLORIDE 0.9% 1000 ML 1,000 ML 100 ML IV (08:19)
--- NOTE | 2025-08-07 13:46 | PC.SS ---
Angelique Moeller is a 45-year-old female admitted to Med Surg for SANDRA. SS conducted bedside contact with the patient to complete initial assessment and to discuss discharge planning. Role and reason explained. Patient confirmed demographic information. Patient identifies dtr Megan Post [phone] as her surrogate decision maker. Pt states she is able to complete all ADL?s independently. No need for any source of DME. Pts PCP is Dr. Jean-Baptiste. Pharmacy of choice is [facility]. Discharge options discussed and the pt wishes to return home.? Family will provide transportation upon DC. No further intervention required at this time, social media specialist would be available to address any further concerns. DC Plan: Home Contact: Brent Guzman Address: Confirmed on face sheet PCP: Jerilyn
--- NOTE | 2025-08-07 14:21 | PC.SS ---
Rounding: blood transfusion today
[2025-08-07] MEDS: KETOROLAC INJ 30 MG/ML VIAL IVP ×3 (14:24→22:25)
[2025-08-07 16:56] LABS: Basophils # (Auto) 0.0 Thou/mm3 (0.0-0.2); Basophils % (Auto) 0 % (0-2.5); Eosinophils # (Auto) 0.0 Thou/mm3 (0.0-0.5); Eosinophils % (Auto) 0 % (0-10); Hematocrit 27.0 % (36.0-46.0); Immature Granulocytes Auto 0.05 Thou/mm3 (0.00-0.00); Lymphocytes # (Auto) 1.3 Thou/mm3 (1.0-4.8); Lymphocytes % (Auto) 14 % (10-50); Mean Corpuscular HGB Conc 31.5 g/dl (31.0-37.0); Mean Corpuscular Hemoglobin 23.8 pg (25.0-35.0); Mean Corpuscular Volume 76 fL (80-100); Monocytes # (Auto) 0.7 Thou/mm3 (0.0-0.8); Monocytes % (Auto) 7 % (0-12); Neutrophils # (Auto) 7.6 Thou/mm3 (1.8-7.7); Neutrophils % (Auto) 79 % (37-80); Nucleated Red Blood Cell # 0.08 Thou/mm3 (0.00-0.00); Nucleated Red Blood Cell % 1 /100 WBC (0); Platelet Count 229 Thou/mm3 (140-440); RDW Standard Deviation 53.1 fL (36.4-46.3); Red Blood Count 3.57 Miln/mm3 (4.00-5.20); White Blood Count 9.7 Thou/mm3 (3.6-11.0)
[2025-08-07 16:59] LABS: Hemoglobin 8.5 g/dL (12.0-16.0)
[2025-08-07] MEDS: HYDROcodone/APAP 5/325 TABLET 1 TAB PO (20:07)
[2025-08-08] VITALS: BP 129/83; PULSE 62; RESP 16; TEMP 36.6; O2SAT 96
[2025-08-08] MEDS: HYDROcodone/APAP 5/325 TABLET 2 TAB PO ×2 (03:22→20:27)
[2025-08-08 04:00] VITALS: BP 139/86; PULSE 61; RESP 17; TEMP 36.5; O2SAT 97
[2025-08-08] MEDS: KETOROLAC INJ 30 MG/ML VIAL IVP ×4 (05:50→23:52)
[2025-08-08 06:08] LABS: Basophils # (Auto) 0.0 Thou/mm3 (0.0-0.2); Basophils % (Auto) 1 % (0-2.5); Eosinophils # (Auto) 0.1 Thou/mm3 (0.0-0.5); Eosinophils % (Auto) 2 % (0-10); Hematocrit 28.0 % (36.0-46.0); Immature Granulocytes Auto 0.03 Thou/mm3 (0.00-0.00); Lymphocytes # (Auto) 1.8 Thou/mm3 (1.0-4.8); Lymphocytes % (Auto) 24 % (10-50); Mean Corpuscular HGB Conc 31.1 g/dl (31.0-37.0); Mean Corpuscular Hemoglobin 23.6 pg (25.0-35.0); Mean Corpuscular Volume 76 fL (80-100); Monocytes # (Auto) 0.6 Thou/mm3 (0.0-0.8); Monocytes % (Auto) 7 % (0-12); Neutrophils # (Auto) 5.0 Thou/mm3 (1.8-7.7); Neutrophils % (Auto) 66 % (37-80); Nucleated Red Blood Cell # 0.05 Thou/mm3 (0.00-0.00); Nucleated Red Blood Cell % 1 /100 WBC (0); Platelet Count 229 Thou/mm3 (140-440); RDW Standard Deviation 54.6 fL (36.4-46.3); Red Blood Count 3.68 Miln/mm3 (4.00-5.20); White Blood Count 7.6 Thou/mm3 (3.6-11.0)
[2025-08-08 06:16] LABS: Hemoglobin 8.7 g/dL (12.0-16.0)
[2025-08-08 07:50] VITALS: BP 131/85; PULSE 59; RESP 18; TEMP 35.8; O2SAT 94
[2025-08-08] MEDS: HYDROcodone/APAP 5/325 TABLET 1 TAB PO (08:19)
[2025-08-08] MEDS: DOCUSATE SOD 100 MG CAPSULE PO (08:19)
--- NOTE | 2025-08-08 10:10 | PD.GYNPROG ---
Documentation for date of: 08/08/25 MECHANICAL TECHNICIAN Subjective Subjective Interval history: Patient doing well this morning. Pain is adequately controlled on the current regimen. No incisional complaints, no chest pain, shortness of breath, breathing difficulties. Ambulating, tolerating p.o., passing flatus and voiding without difficulty. Patient received 1 more unit of PRBC with appropriate stable hemoglobin Exam Vital Signs Temp Pulse Resp BP Pulse Ox O2 Del Method O2 Flow Rate 97.7 F 61 17 139/86 H 97 Room Air 2 08/08/25 04:00 08/08/25 04:00 08/08/25 04:00 08/08/25 04:00 08/08/25 04:00 08/08/25 04:00 08/07/25 16:00 Constitutional Constitutional: no acute distress Routine HEENT Exam Head: Present normocephalic and atraumatic Eye: Present EOMI and PERRL ENT: Present mucous membranes moist Routine Neck Exam Neck: Present supple and trachea midline Routine Respiratory Exam Respiratory: Present chest non-tender, lungs clear, normal breath sounds and no resp distress Routine Cardiovascular Exam Cardiovascular: Present RRR Routine Abdominal Exam Abdominal: Present soft and normoactive bowel sounds Routine Extremities Exam Extremities: Present full ROM Routine Skin Exam Skin: Present intact and dry Routine Neurological Exam Neurological: Present alert, oriented X3 and CN II-XII intact Routine Psychiatric Exam Psychiatric: Present normal affect and normal thought process Urinary Catheter Management Cath placed during this visit: no MECHANICAL TECHNICIAN - PN: Obj Data Labs 08/08/25 04:53 08/07/25 04:10 Labs: Laboratory Results - last 24 hr 08/05/25 08/07/25 08/08/25 11:20 16:25 04:53 WBC 9.7 7.6 RBC 3.57 L 3.68 L Hgb 8.5 L 8.7 L Hct 27.0 L 28.0 L MCV 76 L 76 L MCH 23.8 L 23.6 L MCHC 31.5 31.1 RDW Std Deviation 53.1 H 54.6 H Plt Count 229 D 229 Neut % (Auto) 79 66 Lymph % (Auto) 14 24 [place] % (Auto) 7 7 Eos % (Auto) 0 2 Baso % (Auto) 0 1 Neut # (Auto) 7.6 5.0 Lymph # (Auto) 1.3 1.8 [place] # (Auto) 0.7 0.6 Eos # (Auto) 0.0 0.1 Baso # (Auto) 0.0 0.0 Immature Gran # (Auto) 0.05 H 0.03 H Absolute Nucleated RBC 0.08 H 0.05 H Immature Gran % 1 H 0 Nucleated RBC % 1 H 1 H Blood Type O Positive Antibody Screen NEGATIVE Crossmatch See Detail Blood Bank Wristband ID Yes Blood Bank Comment FFP Ready MECHANICAL TECHNICIAN - A/P Assessment and plan (1) Intramural leiomyoma of uterus: Status: Acute (2) Chronic blood loss anemia: Status: Acute (3) Status post laparotomy: Status: Acute Assessment and plan: Patient is postoperative day #2 status post laparotomy and total abdominal hysterectomy Meeting postoperative milestones. Plan to keep till tomorrow due to long vertical incision requiring pain management Postoperative Procedures: Procedures Operation Date: 08/06/25 10:45 Actual Procedure Side Surgeon p abdominal hysterectomy, bilateral salpingectomy Malcolm Ibrahim MD Time Spent With Patient Time: Total time spent is greater than 50% in coordination of care (as documented) at patient's floor/unit and/or counseling patient: Time with patient: less than 15 minutes
[2025-08-08 11:45] VITALS: BP 121/76; PULSE 56; RESP 16; TEMP 35.9; O2SAT 95
[2025-08-08 16:00] VITALS: BP 113/78; PULSE 74; RESP 16; TEMP 35.6; O2SAT 95
[2025-08-08 20:00] VITALS: BP 123/72; PULSE 66; RESP 17; TEMP 36.1; O2SAT 96
[2025-08-09] VITALS: BP 123/70; PULSE 62; RESP 17; TEMP 36.2; O2SAT 97
--- NOTE | 2025-08-09 02:13 | PD.GYNPROG ---
Documentation for date of: 08/09/25 WATERWAY TRAFFIC CHECKER Subjective Subjective Interval history: Patient doing well this morning. No acute complaints. She was able to shower and she has had bowel function. Pain is appropriate for her postoperative status. Exam Vital Signs Temp Pulse Resp BP Pulse Ox O2 Del Method O2 Flow Rate 97.1 F 62 17 123/70 97 Room Air 2 08/09/25 00:00 08/09/25 00:00 08/09/25 00:00 08/09/25 00:00 08/09/25 00:00 08/09/25 00:00 08/07/25 16:00 Constitutional Constitutional: no acute distress Routine HEENT Exam Head: Present normocephalic and atraumatic Eye: Present EOMI and PERRL ENT: Present mucous membranes moist Routine Neck Exam Neck: Present supple and trachea midline Routine Respiratory Exam Respiratory: Present chest non-tender, lungs clear, normal breath sounds and no resp distress Routine Cardiovascular Exam Cardiovascular: Present RRR Routine Abdominal Exam Abdominal: Present soft and normoactive bowel sounds Routine Extremities Exam Extremities: Present full ROM Routine Skin Exam Skin: Present intact and dry Routine Neurological Exam Neurological: Present alert, oriented X3 and CN II-XII intact Routine Psychiatric Exam Psychiatric: Present normal affect and normal thought process Urinary Catheter Management Cath placed during this visit: no WATERWAY TRAFFIC CHECKER - PN: Obj Data Labs 08/08/25 04:53 08/07/25 04:10 Labs: Laboratory Results - last 24 hr 08/05/25 08/08/25 11:20 04:53 WBC 7.6 RBC 3.68 L Hgb 8.7 L Hct 28.0 L MCV 76 L MCH 23.6 L MCHC 31.1 RDW Std Deviation 54.6 H Plt Count 229 Neut % (Auto) 66 Lymph % (Auto) 24 [place] % (Auto) 7 Eos % (Auto) 2 Baso % (Auto) 1 Neut # (Auto) 5.0 Lymph # (Auto) 1.8 [place] # (Auto) 0.6 Eos # (Auto) 0.1 Baso # (Auto) 0.0 Immature Gran # (Auto) 0.03 H Absolute Nucleated RBC 0.05 H Immature Gran % 0 Nucleated RBC % 1 H Crossmatch See Detail WATERWAY TRAFFIC CHECKER - A/P Assessment and plan (1) Intramural leiomyoma of uterus: Status: Acute (2) Chronic blood loss anemia: Status: Acute (3) Status post laparotomy: Status: Acute Assessment and plan: Postoperative day #3 status post laparotomy with total abdominal hysterectomy for very large leiomyoma of uterus Patient doing well and meeting postoperative milestones. Anticipate discharge home today. Postoperative Procedures: Procedures Operation Date: 08/06/25 10:45 Actual Procedure Side Surgeon p abdominal hysterectomy, bilateral salpingectomy Malcolm Ibrahim MD Time Spent With Patient Time: Total time spent is greater than 50% in coordination of care (as documented) at patient's floor/unit and/or counseling patient: Time with patient: less than 15 minutes
--- NOTE | 2025-08-09 02:14 | ESDS_ITS ---
Planned Discharge Date 08/09/25 DS: Providers Provider Date of admission: 08/06/25 05:40 Primary care physician: Katrina Jean-Baptiste PA-C Admitting Provider: Malcolm Ibrahim MD Attending Provider on Admission: Malcolm Ibrahim MD Attending Provider on DC: Malcolm Ibrahim MD Discharging Provider: Malcolm Ibrahim MD DS: Diagnosis Discharge Diagnosis (1) Status post laparotomy: Status: Acute (2) Chronic blood loss anemia: Status: Acute (3) Intramural leiomyoma of uterus: Status: Acute Problem List Completed Was Problem List Reviewed/Reconciled?: Yes Hospital Course Hospital Course Hospital course: Patient doing well this morning. No acute complaints. She was able to shower and she has had bowel function. Pain is appropriate for her postoperative status. 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 Vital Signs Temp Pulse Resp BP Pulse Ox O2 Del Method O2 Flow Rate 97.1 F 62 17 123/70 97 Room Air 2 08/09/25 00:00 08/09/25 00:00 08/09/25 00:00 08/09/25 00:00 08/09/25 00:00 08/09/25 00:00 08/07/25 16:00 Discharge Plan Plan Patient Disposition: HOME (Self Care) Patient condition on transfer: Stable Prescriptions/Referrals Prescriptions/Med Rec: New hydrocodone-acetaminophen 5-325 mg tablet 1 tab PO Q6H MDD 4 PRN (Reason: pain) 7 Days Qty: 28 0RF docusate sodium [Stool Softener] 100 mg capsule 100 mg PO QDAY 30 Days Qty: 30 0RF ibuprofen 600 mg tablet 600 mg PO Q6H MDD 4 PRN (Reason: fever or pain) 10 Days Qty: 40 0RF amoxicillin-pot clavulanate 875-125 mg tablet 1 tab PO BID 7 Days Qty: 14 0RF Continued ondansetron 4 mg tablet,disintegrating 4 mg PO Q8H PRN (Reason: nausea and vomiting) Qty: 20 0RF omeprazole 20 mg capsule,delayed release(DR/EC) 20 mg PO DAILY Patient Comments: TAKE 1 CAPSULE BY MOUTH EVERY DAY 30 MINUTES TO 1 HOUR BEFORE A MEAL Discontinued ferrous sulfate 325 mg (65 mg iron) tablet 325 mg PO BID Qty: 60 0RF acetaminophen 500 mg tablet 500 mg PO Q4H PRN (Reason: pain) Patient Comments: TAKE 1 TABLET BY MOUTH EVERY 4 TO 6 HOURS NEEDED NO TO EXCEED 8 TABLETS PER 24 HOURS folic acid 1 mg tablet 1 mg PO DAILY Patient Comments: TAKE 1 TABLET BY MOUTH EVERY DAY Referrals: Katrina Jean-Baptiste PA-C [Primary Care Provider] Malcolm Ibrahim MD [Physician, WATCH TRAIN INSPECTOR] Patient/Caregiver Discharge Instructions Meds to Beds: Yes Discharge Activity: activity as tolerated Education Materials: Exploratory Laparotomy, Abdominal Hysterectomy Dc Print Language: Faroese Stand Alone Forms: Vernell Award Info., Patient Portal Info Letter
[2025-08-09 04:00] VITALS: BP 137/79; PULSE 65; RESP 17; TEMP 36.8; O2SAT 97
[2025-08-09] MEDS: KETOROLAC INJ 30 MG/ML VIAL IVP ×2 (05:20→11:09)
[2025-08-09] MEDS: HYDROcodone/APAP 5/325 TABLET 2 TAB PO (07:25)
[2025-08-09] MEDS: DOCUSATE SOD 100 MG CAPSULE PO (07:25)
[2025-08-09 08:00] VITALS: BP 125/77; PULSE 63; RESP 16; TEMP 36.2; O2SAT 95
[2025-08-09 11:23] VITALS: BP 120/73; PULSE 66; RESP 16; TEMP 35.8; O2SAT 94
== END 2025-08-09 11:30 | disposition home or self-care (01) | DRG 519 ==
LOC: S2W1 06:06 → S3NX 17:21
PROVIDERS: Admitting Provider Obstetrics & Gynecology; PCP Physician Assistant; Visit Provider Obstetrics & Gynecology
PROC: 0UT90ZZ Resection of Uterus, Open Approach (ICD-10-PCS; principal; 2025-08-06 10:30)
DX: D25.1 Intramural leiomyoma of uterus (principal); D50.0 Iron deficiency anemia secondary to blood loss (chronic)
CPT/HCPCS: 36415; 80048; 80053; 84703; 85025; 85384; 85610; 85730; 86850; 86900; 86901; 86923; 86927; A4217; A4649; J0131; J0690; J1100; J1171; J1200; J1885; J2405; J2704; J2710; J3010; J3490; J7030; P9016; P9060; A9270; J1596

== ENCOUNTER 2025-08-18 15:20 | Outpatient (AMB) | payer MEDICAID, SELFPAY ==
--- NOTE | 2025-08-18 15:40 | GYNCLNT_ITS ---
Vital Signs 08/18/25 15:41 Height 1.55 m Height Method Stated Weight 82.214 kg Weight Measurement Method Standing Scale BMI 34.2 BP 143/83 H Blood Pressure Source Automatic Cuff Blood Pressure Location Left Upper Arm Position Sitting Respiration 16 Pulse 88 Pulse Source Monitor Temp 97.8 F Temp Source Oral Pulse Oximetry (%) 98 Oxygen Delivery Method Room Air Allergies/Home Meds Allergies & Medications Allergies No Known Allergies Allergy (Verified 08/18/25 15:42) Medication Reconciliation docusate sodium 100 mg capsule (Stool Softener) 100 mg PO QDAY 30 days #30 caps 08/08/25 [Rx Confirmed 08/18/25] Intake Visit Data Collection New Patient or Established: Established Patient (seen at [facility] within 3 years) Reason for Visit:: 1 WEEK POST OP Seen by Clinical Staff ONLY (RN/MA): No Skill Training Program Coordinator Required: Yes Skill Training Program Coordinator's name/title: JOSE EVANS Do You Feel Safe at Home: Yes Authorities Contacted: N/A PCP or OBGYN visit in last 3 months: Yes Hx Now: No Are you currently on any form of Control: No Last menstrual period: 08/06/25 Pain Present Currently: Yes Pain Location: Abdomen (LOWER) Pain Scale Used: Recinos-Khanna/Numerical Pain scale:: 6 Smoking Status Smoking Status: Never smoker Immunizations Flu Vaccine in the Last 12 Months: Yes Flu Vaccine Exclusion Criteria: Already Received Blister Packing Machine Tender history Blister Packing Machine Tender History Menstrual regularity: irregular Flow: heavy Monthly: No How many days does period last: 7 Age at menarche: 13 Currently sexually active: No If not currently sexually active, have you ever been sexually active: Yes 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 1. Little interest or pleasure in doing things: not at all 2. Feeling down, depressed, or hopeless: not at all Total score: 0 PHQ-9 3. Trouble falling or staying asleep, or sleeping too much: Not at all 4. Feeling tired or having little energy: Not at all 5. Poor appetite or overeating: Not at all 6. Feeling bad about yourself - or that you are a failure or have let yourself or your family down: Not at all 7. Trouble concentrating on things, such as reading the newspaper or watching television: Not at all 8. Moving or speaking so slowly that other people could have noticed? - Or the opposite - being so fidgety or restless that you have been moving around a lot more than usual: not at all 9. Thoughts that you would be better off or of hurting yourself in some way: Not at all Total score: 0 Source: Developed by Drs. Jere Glover, Jennie Maria, Vu Torres and colleagues, with an educational charlie from [employer]. Depression screen completed yes Social History Living Situation History Lives With: Children Housing: House Tobacco History Smoking Status: Never smoker Second Hand Smoke Exposure: No Alcohol History Alcohol Intake: Never Domestic Abuse History Do You Feel Safe at Home: Yes History of Present Illness HPI Narrative Angelique Moeller presents for post-operative follow-up after surgery for fibroid removal. She had been experiencing significant functional limitations prior to surgery due to a large fibroid that was touching under her ribs, describing being unable to participate in family activities such as going to [place] or [place] with her three children because she could not last all day due to discomfort and fatigue. The patient experienced severe anemia and heavy bleeding, which caused persistent sleepiness and made it difficult for her to sleep on one side. Her symptoms appeared to worsen this year, suggesting the fibroid had grown larger. The fibroid's size and location also made breathing difficult. She has a history of recent surgery for large fibroid removal (myomectomy), currently in postoperative follow-up with staple removal. Currently post- surgery, she is managing pain and continues to wear a binder as prescribed. She is having daily bowel movements and appears to be recovering appropriately from the procedure. The patient lives with family including three children. She has three young children and expresses concerns about functional limitations affecting her ability to participate in activities with them. ROS: General: Positive for fatigue and sleepiness. Gastrointestinal: Positive for daily bowel movements. Respiratory: Positive for difficulty breathing. Musculoskeletal: Positive for pain. Exam Narrative Physical exam: - Abdominal: Surgical kadeem removed from incision site. Surgical tape removed prior to staple removal. Office Procedures [facility] LOC & Office Proc's Nursing/Assessment Patient Status: Established Patient OB Clinic Nursing Assessment: Medication Reconciliation, Update PMH in EMR and Vital Signs OB Clinic Coordination of Care: Complex Care and Chronic Disease 1-5, Consent,records obtained, informed consent, Education Simp Pt/Fam, 1 Ins Authorization, Lab and Imaging orders, Results/Orders obtained and Staff clarify orders Miscellaneous Interventions: Staple/Suture Removal Established Patient Charge Established Patient Point Assignment: 135 Established Patient Point Charge: EP Level 4 (120-155) Assessment & Plan Diagnosis / Problem List (1) Other specified postprocedural states: Status: Acute (2) Leiomyoma of uterus, unspecified: Status: Acute Plan Postoperative Status Uterine Fibroid Surgery: - Patient recovering well from uterine fibroid surgery. - Pathology report shows no malignancy. - Large fibroid caused significant functional impairment preoperatively including inability to participate in family activities, sleep disturbance, severe anemia from blood loss, and respiratory compromise due to fibroid extending to the ribs. - Patient experienced fatigue and weakness from anemia. Plan: - Staple removal completed during visit. - Continue wearing abdominal binder for one month (approximately 15 more days from surgery date). - Gradually increase activities as tolerated. - Lifting restriction: no lifting more than 30 pounds. - Work excuse letter provided for 3 months total recovery time from surgery date, with option to clear sooner if recovery progresses well. - Repeat EDT. - Return visit in approximately 3 weeks.
[2025-08-18 15:41] VITALS: BP 143/83; PULSE 88; RESP 16; TEMP 36.6; O2SAT 98; BMI 34.2
== END 2025-08-18 16:07 | disposition home or self-care (01) ==
LOC: HODSOBC 15:20
PROVIDERS: PCP Physician Assistant; Referring Provider Physician Assistant; Supervising Provider Obstetrics & Gynecology; Visit Provider Obstetrics & Gynecology
DX: Z48.816 Encounter for surgical aftercare following surgery on the genitourinary system (principal); Z87.42 Personal history of other diseases of the female genital tract
CPT/HCPCS: 99214; G0463